=== PATIENT | female | born 1985 | race Hispanic/Latino ===

== ENCOUNTER → 2018-03-03 13:57 | Outpatient (CLI) | payer BC, SELFPAY ==
--- NOTE | 2018-03-03 14:08 | BI_ITS ---
MAMMOGRAPHY - BILATERAL SCREENING REASON FOR EXAM: Female, 32 years old. Routine annual screening examination. PERTINENT HISTORY: Non-contributory. Right breast is large in the left breast. TECHNIQUE: Digital bilateral breast katie (3D mammographic acquisition) in the CC and MLO projections. 2-D mediolateral oblique (MLO) and craniocaudad (CC) views of both breasts were obtained. CAD: Full Field Digital Mammography with Computer Added Detection was performed. COMPARISON: None. Baseline examination. FINDINGS: Breast Composition: The breasts are heterogeneously dense, which may obscure small masses. There are no dominant masses or suspicious calcifications. No other significant abnormalities are identified. BI/DIAG MAMM W/CAD, BILAT IMPRESSION: Negative screening mammogram. With the patient's history of fullness of the right breast, correlation with ultrasound is recommended. ASSESSMENT CATEGORY: BIRADS Category 0: Incomplete. Need additional imaging evaluation. A letter regarding these results will be sent to the patient by the facility within 30 days. Approximately 10% of breast cancers are not detected by mammography. A normal mammogram should not delay biopsy of a clinically suspicious abnormality. [id number] Electronically Signed: Wicho Suarez MD at 16:05 EDT Tel [phone], Service support ,
--- NOTE | 2018-03-03 14:09 | US_ITS ---
STUDY: ULTRASOUND BREAST - RIGHT REASON FOR EXAM: Female, 32 years old. Pain in the right breast. TECHNIQUE: Axial and longitudinal images of the RIGHT breast were performed with a high resolution ultrasound transducer. COMPARISON: Comparison is made with prior mammogram done earlier today. FINDINGS: RIGHT Breast: The entire right breast was examined by ultrasound. There is homogeneous fibroglandular tissue. No solid or cystic mass lesion is seen. US/Breast Limited Unilateral IMPRESSION: Unremarkable sonographic examination of the breasts. ASSESSMENT CATEGORY: BIRADS Category 1: Negative. A letter regarding these results will be sent to the patient by the facility within 30 days. Electronically Signed: Wicho Suarez MD at 16:04 EDT Tel [phone], Service support ,
== END ==
PROVIDERS: Family Provider Internal Medicine; PCP Internal Medicine; Visit Provider Obstetrics & Gynecology
DX: N63.0 Unspecified lump in unspecified breast (principal); N62 Hypertrophy of breast
CPT/HCPCS: 76642; 77062; 77066; G0279

== ENCOUNTER → 2018-03-16 08:09 | Outpatient (CLI) | payer BC, SELFPAY ==
[2018-03-16 09:00] LABS: Hematocrit 39.2 % (37-47); Mean Corp Hgb Conc 33.2 g/gl (32-36); Mean Corpuscular Hgb 32.5 pg (27.0-32.0); Mean Platelet Vol. 11.8 fl (6.2-12.0); Platelet Count 245 K/mm3 (150-450); RBC Distribution Width CV 11.7 % (11.6-14.6); RBC Distribution Width SD 42.1 fl (35.1-43.9); White Blood Count 6.5 K/mm3 (4.4-11.0)
[2018-03-16 09:02] LABS: Scan Indicated on CBC? Y/N NO
[2018-03-16 09:23] LABS: Glucose 75GTT - Fasting 95 mg/dL (70-99)
[2018-03-16 10:27] LABS: Glucose 75GTT - 60 minutes 80 mg/dL (100-160)
[2018-03-16 10:28] LABS: AST(SGOT) 12 U/L (15-37); Alanine Aminotransfer ALT/SGPT 19 U/L (13-56); Albumin, Serum 3.7 g/dL (3.2-5.0); Alkaline Phosphatase 80 U/L (45-117); Anion Gap 8 (5-15); BUN 16 mg/dL (7-18); BUN/Creat Ratio 17.6 RATIO (10-20); Calcium,Total 8.7 mg/dL (8.5-10.1); Chloride 109 mmol/L (98-107); Cholesterol 150 mg/dL (200); Creatinine, Serum 0.91 mg/dL (0.55-1.02); EST Glomerular Filtration Rate 76 mL/min (>60); Est Glom Filt Rate - Afr Amer 91 mL/min (>60); Estradiol 40.4 pg/mL; Follicle Stimulating Hormone 7.2 mIU/mL; GGTP 11 U/L (5-55); Globulin 3.8 g/dL (2.2-4.2); Glucose 92 mg/dL (74-106); High Density Lipoprotein 44 mg/dL; Potassium 4.2 mmol/L (3.5-5.1); Prolactin 28.5 ng/mL; Protein, Total 7.5 g/dL (6.4-8.2); Sodium Level 142 mmol/L (136-145); T4 Free Direct 0.97 ng/dL (0.76-1.46); Thyroid Stim Hormone (TSH) 5.86 uIU/mL (0.358-3.74); Triglycerides 93 mg/dL; Very Low Density Lipoprotein 19 mg/dL (5-40)
[2018-03-16 10:34] LABS: Glucose 75GTT - 30 minutes 123 mg/dL (100-160)
[2018-03-16 12:28] LABS: Glucose 75GTT - 120 minutes 92 mg/dL (70-140)
[2018-03-17 08:21] LABS: Insulin 75GTT - 30 MIN 76.4 mU/L (Not Estab.)
[2018-03-17 08:21] LABS: Insulin 75GTT - Fasting 7.7 mU/L (2.6-37.6)
[2018-03-17 08:27] LABS: Vitamin D,25 Hydroxy 26.9 ng/mL (29.95-100.01)
[2018-03-17 08:27] LABS: Insulin 75GTT - 120 min 26.5 mU/L (Not Estab.)
[2018-03-17 11:38] LABS: Sex Hormone-binding Globulin 38.1 nmol/L (24.6-122.0)
[2018-03-19 11:21] LABS: 17-Hydroxyprogesterone 41 ng/dL (.)
[2018-03-22 14:07] LABS: Thyroid Peroxidase AB 13 IU/mL (0-34)
[2018-03-23 10:27] LABS: Thyroglobulin Antibody < 1.0 IU/mL (0.0-0.9)
== END ==
PROVIDERS: Family Provider Family Medicine; PCP Family Medicine; Visit Provider Obstetrics & Gynecology
DX: Z83.3 Family history of diabetes mellitus (principal); Z82.49 Family history of ischemic heart disease and other diseases of the circulatory system; Z68.28 Body mass index [BMI] 28.0-28.9, adult
CPT/HCPCS: 36415; 80053; 80061; 82306; 82533; 82627; 82670; 82951; 82952; 82977; 83001; 83498; 83525; 84144; 84146; 84270; 84403; 84439; 84443; 84480; 84481; 84482; 85027; 86376; 86800; 82626

== ENCOUNTER → 2018-05-10 10:03 | Outpatient (CLI) | payer BC, SELFPAY ==
[2018-05-10 11:16] LABS: Estradiol 31.9 pg/mL; Follicle Stimulating Hormone 5.7 mIU/mL; Free T3 3.1 pg/mL (2.18-3.98); Prolactin 16.7 ng/mL; T4 Free Direct 1.34 ng/dL (0.76-1.46); Thyroid Stim Hormone (TSH) 0.04 uIU/mL (0.358-3.74)
[2018-05-11 05:07] LABS: DHEA Sulfate 335.9 ug/dL (84.8-378.0)
[2018-05-11 08:33] LABS: Sex Hormone-binding Globulin 34.1 nmol/L (24.6-122.0)
== END ==
PROVIDERS: Visit Provider Obstetrics & Gynecology
DX: E03.9 Hypothyroidism, unspecified (principal); E22.1 Hyperprolactinemia; E28.8 Other ovarian dysfunction
CPT/HCPCS: 36415; 82627; 82670; 83001; 84146; 84270; 84403; 84439; 84443; 84481; 82626

== ENCOUNTER → 2018-06-22 16:48 | Outpatient (CLI) | payer BC, SELFPAY ==
[2018-06-22 17:28] LABS: Absolute Lymphocyte Count 2.61 X10^3/ul (0.83-4.51); Absolute Neutrophil Count 5.1 X10^3/uL (2.0-7.7); Basophil# 0.04 X10^3/uL; Basophil% 0.5 % (0-1); Eosinophil# 0.07 X10^3/uL; Eosinophils% 0.8 % (0-5); Hematocrit 38.2 % (37-47); Hemoglobin 13.1 g/dl (12.0-15.0); Lymphocyte # 2.61 X10^3/ul (4.0); Lymphocyte % 31.1 % (19-41); Mean Corp Hgb Conc 34.3 g/gl (32-36); Mean Corpuscular Volume 96.2 fL (81-99); Mean Platelet Vol. 11.7 fl (6.2-12.0); Monocyte# 0.54 X10^3/uL; Monocyte% 6.4 % (0-10); Neutrophil # 5.12 X10^3/uL (2.7-7.7); Neutrophil % 61.1 % (47-70); Platelet Count 220 K/mm3 (150-450); RBC Distribution Width CV 11.9 % (11.6-14.6); RBC Distribution Width SD 41.7 fl (35.1-43.9); Red Blood Count 3.97 M/mm3 (4.2-5.4); White Blood Count 8.4 K/mm3 (4.4-11.0)
[2018-06-22 17:32] LABS: POSITIVE COUNT NO; POSITIVE DIFFERENTIAL NO; POSITIVE MORPHOLOGY NO
[2018-06-22 17:46] LABS: Color, Urine Yellow (Yellow); Glucose, Dipstick Normal (Normal); Ketone-Dipstick Negative (Negative); Leukocyte Esterase-Dipstick 500 /ul (Negative); Nitrite-Dipstick Negative (Negative); Occult Blood-Urine 10 /ul (Negative); Protein-Dipstick Negative (Negative); Urine Bilirubin Dipstick Negative (Negative); Urine Clarity Sl. Cloudy (Clear); Urine Urobilinogen Normal (Normal)
[2018-06-22 18:03] LABS: Thyroid Stim Hormone (TSH) 0.11 uIU/mL (0.358-3.74)
[2018-06-22 18:18] LABS: Amphetamine Urine VISTA NEGATIVE (<1000 ng/mL); Barbiturate Urine VISTA NEGATIVE (< 200 ng/mL); Benzodiazepine Urine VISTA NEGATIVE (< 200 ng/mL); Cocaine Urine VISTA NEGATIVE (< 300 ng/mL); Ecstacy Urine VISTA NEGATIVE (< 500 ng/mL); Methadone Urine VISTA NEGATIVE (< 300 ng/mL); PCP Urine VISTA NEGATIVE (< 25 ng/mL); THC Urine VISTA NEGATIVE (< 50 ng/mL); Vista UDS pH Range 6
[2018-06-22 18:47] LABS: HIV - WCH Non-Reactive (Nonreactive); Rubella IgG 320.9 IU/mL; Vitamin D,25 Hydroxy 38.1 ng/mL (29.95-100.01)
[2018-06-22 19:42] LABS: Chlamydia Trachomatis by PCR Negative (Negative); Neisserai gonorrhoeae by PCR Negative (Negative); Probe Check PASS; Sample Adequacy Control PASS; Specimen Processing Control PASS
[2018-06-24 08:30] LABS: HEPATITIS B SURFACE AG Negative (Negative); Hep C Antibodies <0.1 s/co ratio (0.0-0.9)
[2018-06-25 02:02] LABS: Prenatal RPR NONREACTIVE (NONREACTIVE)
== END ==
PROVIDERS: Visit Provider Obstetrics & Gynecology
DX: Z32.01 Encounter for pregnancy test, result positive (principal); Z11.3 Encounter for screening for infections with a predominantly sexual mode of transmission
CPT/HCPCS: 36415; 80307; 81002; 82306; 84439; 84443; 84481; 85025; 86703; 86762; 86803; 87340; 87491; 87591

== ENCOUNTER → 2018-07-12 15:49 | Outpatient (CLI) | payer BC, SELFPAY ==
[2017-02-27 06:46] VITALS: BMI 26.3
[2018-07-12 18:44] LABS: Progesterone Level 10.89 ng/mL (See Comment)
--- OUTSIDE RECORDS SUMMARY | 2018-08-29 00:52 | XMS RPT_ITS ---
:1985 Author Organization OHIP Care Team Providers Name Role Phone Melissa Stringer Attending Unavailable Melissa Stringer Attending Unavailable Russel Moreland Primary Care Unavailable Melissa Stringer Attending Unavailable Melissa Stringer Referring Unavailable Ken Fuentes Primary Care Unavailable Melissa Stringer Attending Unavailable Melissa Stringer Attending Unavailable PROBLEMS PROBLEMS DATE TYPE CONDITION / CODE ATTENDING STATUS SOURCE 07/12/2018 Unknown Z34.81 - Encounter for [facility] [place] supervision of other [facility] normal , first Hospital trimester / Repository Z34.81(ICD-10) 05/10/2018 Unknown E28.8 - Other ovarian [place], [facility] [place] dysfunction / [facility] E28.8(ICD-10) Hospital Repository 05/10/2018 Unknown E03.9 - Hypothyroidism, [place], [facility] [place] unspecified / [facility] E03.9(ICD-10) Hospital Repository 05/10/2018 Unknown E22.1 - [place], [facility] [place] Hyperprolactinemia / [facility] E22.1(ICD-10) Hospital Repository PROCEDURES PROCEDURES No Procedure Records FoundRESULTS RESULTS PROGESTERONE LEVEL Collected: 07/12/2018 Status: F Source: [place] 3:51 PM [facility] REPOSITORY TYPE CODE TESTS RESULT OUT OF REFERENCE UNITS RANGE LAB L509.4001 See Comment ng/mL Progesterone Normal 10.89 Result Comment: Progesterone Reference Table: UNITS Female: Follicular 0.15 - 1.40 ng/mL Luteal 3.34 - 25.56 ng/mL Mid-luteal 4.44 - 28.03 ng/mL Postmenopausal 0.0 - 0.73 ng/mL : 1st Trimester 11.22 - 90.00 ng/mL 2nd Trimester 25.55 - 89.40 ng/mL 3rd Trimester 48.40 -422.50 ng/mL Performed By: #### L509.4001 #### [facility] [address] [place], [address] URINE DRUG SCREEN Collected: 06/22/2018 Status: F Source: [place] (VISTA) 4:50 PM [facility] REPOSITORY Order Comment: List of Drugs Taken or Suspected? UNK TYPE CODE TESTS RESULT OUT OF RANGE REFERENCE UNITS LAB L505.0075 TO BE Normal CONFIRMED Result Comment: CONFIRMATORY TESTING FOR ALL POSITIVE URINE DRUG SCREEN RESULTS WILL ONLY BE SENT OUT UPON PHYSICIAN ORDER. VISTA Urine Drug Screen methods provide only preliminary analytical test results. A more specific alternate chemical method must be used in order to obtain a confirmed analytical result. Gas chromatography/mass spectrometery (GC/MS) is the preferred confirmatory method. Clinical consideration and professional judgement should be applied to any drug of abuse test result, particularly when preliminary positive results are used. URINE TCA TESTING MUST BE ORDERED SEPARATELY. USE TEST MNEMONIC: [facility] LAB L505.5005 VISTA UDS PH 6 Normal LAB L505.5015 <1000 ng/mL AMPHETAMINES Normal NEGATIVE LAB L505.5025 < 200 ng/mL BARBITIURATES Normal NEGATIVE LAB L505.5035 < 200 ng/mL BENZODIAZIPINE Normal NEGATIVE LAB L505.5045 < 300 ng/mL COCAINE Normal NEGATIVE LAB L505.5055 < 500 ng/mL ECSTACY Normal NEGATIVE LAB L505.5065 < 300 ng/mL METHADONE Normal NEGATIVE LAB L505.5075 < 300 ng/mL OPIATES Normal NEGATIVE LAB L505.5085 < 25 ng/mL PCP Normal NEGATIVE LAB L505.5095 < 50 ng/mL THC Normal NEGATIVE Performed By: #### L505.5000 #### [facility] [address] [place], [place], [id number] CBC W/DIFF, AUTOMATED Collected: 06/22/2018 Status: F Source: [place] 4:50 PM [facility] REPOSITORY TYPE CODE TESTS RESULT OUT OF RANGE REFERENCE UNITS LAB L100.1000 4.4-11.0 K/mm3 Normal WBC 8.4 LAB L100.1200 4.2-5.4 M/mm3 Low RBC 3.97 LAB L100.1300 12.0-15.0 g/dl Normal HGB 13.1 LAB L100.1400 37-47 % Normal HCT 38.2 LAB L100.1500 81-99 fL Normal MCV 96.2 LAB L100.1600 27.0-32.0 pg High MCH 33.0 LAB L100.1700 32-36 g/gl Normal MCHC 34.3 LAB L100.1810 11.6-14.6 % Normal RDW CV 11.9 LAB L100.1820 35.1-43.9 fl Normal RDW SD 41.7 LAB L100.1900 150-450 K/mm3 Normal PLT 220 LAB L100.2000 6.2-12.0 fl Normal MPV 11.7 LAB L100.2100 47-70 % Normal NEUT% 61.1 LAB L100.2200 19-41 % Normal LY% 31.1 LAB L100.2300 0-10 % Normal MONO% 6.4 LAB L100.2400 0-5 % Normal EO% 0.8 LAB L100.2500 0-1 % Normal BASO% 0.5 LAB L100.2550 0.0-0.9 % Normal IM GRAN % 0.100 Result Comment: IG% - Immature Granulocytes (promyelocytes, myelocytes and metamyelocytes) > 1% indicates that a LEFT SHIFT is Present. LAB L100.2620 2.0-7.7 X10 3/uL Normal Absolute Neut 5.1 LAB L100.2720 0.83-4.51 X10 3/ul Normal Absolute Lymph 2.61 Performed By: #### L100.0100 #### [facility] [address] [place], [place], [id number] URINALYSIS, ROUTINE Collected: 06/22/2018 Status: F Source: [place] (DIPSTICK) 4:50 PM [facility] REPOSITORY Order Comment: How was Urine Obtained? CLEAN CATCH TYPE CODE TESTS RESULT OUT OF RANGE REFERENCE UNITS LAB L400.3000 Yellow COLOR Normal Yellow LAB L400.3050 Clear Normal CLARITY Sl. Cloudy LAB L400.3200 Normal mg/dl Normal GLUCOSE, UR Normal LAB L400.3300 Negative mg/dL Normal BILIRUBIN URINE Negative LAB L400.3400 Negative mg/dl Normal KETONE UR Negative LAB L400.3465 1.002-1.030 Normal SP.GR. DIPSTX 1.010 LAB L400.3550 5.0 - 8.0 pH UR Normal 7.0 LAB L400.3600 Negative mg/dl PROT Normal DIPSTX Negative LAB L400.3700 Normal mg/dl Normal UROBILI Normal LAB L400.3750 Negative Normal NITRITE UR Negative LAB L400.3780 Negative /ul High 10 OCCULT BLOOD-UR LAB L400.3800 Negative /ul High LEUK ESTERASE 500 Performed By: #### L400.2010 #### [facility] [address] [place], [place], [address] THYROID STIM HORMONE Collected: 06/22/2018 Status: F Source: [place] (TSH) 4:50 PM [facility] REPOSITORY TYPE CODE TESTS RESULT OUT OF RANGE REFERENCE UNITS LAB L501.9520 0.358-3.74 uIU/mL Low TSH 0.11 Performed By: #### L501.9520 #### [facility] [address] [facility] [place], [address] VITAMIN D,25 HYDROXY Collected: 06/22/2018 Status: F Source: [place] 4:50 PM [facility] REPOSITORY TYPE CODE TESTS RESULT OUT OF RANGE REFERENCE UNITS LAB L506.1000 29.95-100.01 ng/mL Normal Vitamin D 38.1 25-OH Result Comment: Vitamin D 25(OH) Status Range Deficiency <20 ng/mL (50nmol/L) Insuffciency 20 - 30 ng/mL (50 - 75 nmol/L) Sufficiency 30 - 100 ng/mL (75 - 250 nmol/L) Toxicity >100 ng/mL (>250 nmol/L) Performed By: #### L506.1000, L509.4000, L3890.6005 #### [facility] [address] [place], [address] RUBELLA IGG Collected: 06/22/2018 Status: F Source: [place] 4:50 PM [facility] REPOSITORY TYPE CODE TESTS RESULT OUT OF RANGE REFERENCE UNITS LAB L509.4000 IU/mL Normal Rubella IgG 320.9 Result Comment: Antibody results Interpretation of Immune Status < 5 IU/ml Presumed Non-immune 5 - < 10 IU/ml Equivocal > or = 10 IU/ml Presumed Immune Performed By: #### L506.1000, L509.4000, L3890.6005 #### [facility] [address] [facility] [place], [address] HIV - [facility] Collected: 06/22/2018 Status: F Source: [place] 4:50 PM [facility] REPOSITORY TYPE CODE TESTS RESULT OUT OF RANGE REFERENCE UNITS LAB L3890.6005 Nonreactive Normal HIV - [facility] Non-Reactive Performed By: #### L506.1000, L509.4000, L3890.6005 #### [facility] [address] [place], [address] T AND S-NO Collected: 06/22/2018 Status: F Source: [place] CHARGE W/PNP 4:50 PM [facility] REPOSITORY Order Comment: Reason for Type AND Screen/Red Cells: Surgery? N TYPE CODE TESTS RESULT OUT OF RANGE REFERENCE UNITS LAB B10.0800 A Normal BLOOD POSITIVE TYPE GEL LAB B100.4050 Normal Ab SCREEN NEGATIVE GEL Performed By: #### B100.7550 #### [facility] [facility] [place], [address] HEPATITIS B SURFACE Collected: 06/22/2018 Status: F Source: [place] AG 4:50 PM [facility] REPOSITORY TYPE CODE TESTS RESULT OUT OF RANGE REFERENCE UNITS LAB L3100.0400 Negative Normal HB Negative SURF AG Result Comment: Performed at: [address] [id number] Glass Glazier: Yair Plasencia PhD, Phone: [phone] Performed By: #### L3100.0390, L3100.0625 #### [facility] (refer to report for specific site) refer to report for address and phone number HEPATITIS C ANTIBODIES Collected: 06/22/2018 Status: F Source: [place] 4:50 PM [facility] REPOSITORY TYPE CODE TESTS RESULT OUT OF RANGE REFERENCE UNITS LAB L3100.0650 0.0-0.9 s/co ratio Normal HEP C AB <0.1 Result Comment: Negative: < 0.8 Indeterminate: 0.8 - 0.9 Positive: > 0.9 The CDC recommends that a positive HCV antibody result be followed up with a HCV Nucleic Acid Amplification test (379503). Performed By: #### L3100.0390, L3100.0625 #### [facility] (refer to report for specific site) refer to report for address and phone number RPR Collected: 06/22/2018 Status: F Source: [place] 4:50 PM [facility] REPOSITORY TYPE CODE TESTS RESULT OUT OF REFERENCE UNITS RANGE LAB L700.5100 NONREACTIVE Normal RPR NONREACTIVE Performed By: #### L700.5100 #### [facility] [address] [place], [place], [id number] MISCELLANEOUS LAB Collected: 06/22/2018 Status: F Source: [place] PROCEDURE 4:50 PM [facility] REPOSITORY Order Comment: [facility] Interface Comments: [facility] ADD ON REQUEST FILLED OUT AND Interface Comments: FAXED BACK TO [facility]. [facility] Comments: #[id number] T3F SERUM, #[id number] T4F SERUM Test(s) Ordered: #[id number] T3F SERUM TYPE CODE TESTS RESULT OUT OF RANGE REFERENCE UNITS LAB L801.1541 Normal [facility] TEST Result Comment: TEST RESULT LIMITS Thyroxine (T4) Free, Direct T4, Free (Direct) 1.66 ng/dL 0.82 - 1.77 TESTING [facility] AT [facility]. ORIGINAL REPORT ON FILE IN LAB CONTAINS ADDITIONAL TEST SITE INFORMATION. Performed By: #### L801.1541 #### [facility] [address] [place], [address] MISCELLANEOUS LAB Collected: 06/22/2018 Status: F Source: [place] PROCEDURE 2 4:50 PM [facility] REPOSITORY Order Comment: [facility] Interface Comments: ADDED TO BLOOD AT [facility]. ADD ON REQUEST FILLED OUT AND Interface Comments: FAXED BACK TO [facility]. [facility] Comments: #[id number] T3F SERUM, #[id number] T4F SERUM List Test(s) Ordered by Physician: #[id number] T4F SERUM TYPE CODE TESTS RESULT OUT OF RANGE REFERENCE UNITS LAB L801.1543 Normal [facility] TEST 2 Result Comment: TEST RESULT LIMITS Triiodothyronine (T3), Free 3.1 pg/mL 2.0 - 4.4 TESTING PERFORMED AT [facility]. ORIGINAL REPORT ON FILE IN LAB CONTAINS ADDITIONAL TEST SITE INFORMATION. Performed By: #### L801.1543 #### [facility] [address] [place], [address] CT/NG [facility] BY PCR Collected: 06/22/2018 Status: F Source: [place] 4:30 PM [facility] REPOSITORY TYPE CODE TESTS RESULT OUT OF RANGE REFERENCE UNITS LAB L8200.2100 Negative Normal Chlam Negative Trac PCR LAB L8200.2200 Negative Normal NG by Negative PCR Performed By: #### L8200.2000 #### [facility] [address] [place], [address] TESTOSTERONE, SERUM TOTAL Collected: 05/10/2018 Status: F Source: [place] 10:05 AM [facility] REPOSITORY TYPE CODE TESTS RESULT OUT OF REFERENCE UNITS RANGE LAB L509.3000 ng/dL Testosterone Normal 38.35 Result Comment: NORMAL REFERENCE RANGES MALE AGE <50 123.06 - 813.86 ng/dL MALE AGE >50 89.98 - 780.10 ng/dL FEMALE PREMENOPAUSE AGE 21 - 60 9.01 - 47.94 ng/dL FEMALE POSTMENOPAUSE AGE 45 - 89 <7.00 - 45.62 ng/dL REFERENCE RANGE AND METHODOLOGY CHANGED 07/22/2017 Performed By: #### L509.3000 #### [facility] [address] [place], [address] FREE T3 Collected: 05/10/2018 Status: F Source: [place] 10:05 [facility] REPOSITORY TYPE CODE TESTS RESULT OUT OF RANGE REFERENCE UNITS LAB L501.15369 2.18-3.98 pg/mL Normal FREE T3 3.1 Performed By: #### L501.59632, L501.9520, L506.0400, L3100.5125, L3100.5420, L3300.1750 #### [facility] [address] [place], [place], [address] THYROID STIM HORMONE Collected: 05/10/2018 Status: F Source: [place] (TSH) 10:05 AM [facility] REPOSITORY TYPE CODE TESTS RESULT OUT OF RANGE REFERENCE UNITS LAB L501.9520 0.358-3.74 uIU/mL Low TSH 0.04 Performed By: #### L501.65834, L501.9520, L506.0400, L3100.5125, L3100.5420, L3300.1750 #### [facility] [address] [place], [place], [address] T4 FREE DIRECT Collected: 05/10/2018 Status: F Source: [place] 10:05 AM [facility] REPOSITORY TYPE CODE TESTS RESULT OUT OF RANGE REFERENCE UNITS LAB L506.0400 0.76-1.46 ng/dL Normal T4 FREE 1.34 DIRECT Performed By: #### L501.59312, L501.9520, L506.0400, L3100.5125, L3100.5420, L3300.1750 #### [facility] [address] [place], [place], [address] FOLLICLE STIMULATING Collected: 05/10/2018 Status: F Source: [place] HORMONE 10:05 AM [facility] REPOSITORY TYPE CODE TESTS RESULT OUT OF RANGE REFERENCE UNITS LAB L3100.5125 mIU/mL Normal FSH 5.7 Result Comment: NORMAL REFERENCE RANGES FEMALE FOLLICULAR 2.3 - 12.6 mIU/mL MID-CYCLE PEAK 5.2 - 17.5 mIU/mL LUTEAL 1.7 - 12.9 mIU/mL POST-MENOPAUSAL ON MHT 5.9 - 72.8 mIU/mL NOT ON MHT 12.7 - 132.2 mlU/mL MALE 0.7 - 10.8 mIU/mL NEW TEST METHOD AND REFERENCE RANGES DECEMBER 22, 2011 Performed By: #### L501.42013, L501.9520, L506.0400, L3100.5125, L3100.5420, L3300.1750 #### [facility] [address] [place], [place], [address] PROLACTIN Collected: 05/10/2018 Status: F Source: [place] 10:05 [facility] REPOSITORY TYPE CODE TESTS RESULT OUT OF RANGE REFERENCE UNITS LAB L3100.5420 ng/mL Normal PROLACTIN 16.7 Result Comment: NORMAL REFERENCE RANGES FEMALE NON- 2.2 - 30.3 ng/mL 8.1 - 347.6 ng/mL POST-MENOPAUSAL 0.7 - 31.5 ng/mL MALE 2.5 - 17.4 ng/mL NEW TEST METHOD AND REFERENCE RANGES DECEMBER 22, 2011 Performed By: #### L501.41994, L501.9520, L506.0400, L3100.5125, L3100.5420, L3300.1750 #### [facility] [address] [place], [address] ESTRADIOL Collected: 05/10/2018 Status: F Source: [place] 10:05 AM [facility] REPOSITORY TYPE CODE TESTS RESULT OUT OF RANGE REFERENCE UNITS LAB L3300.1750 pg/mL Normal ESTRADIOL 31.9 Result Comment: NORMAL REFERENCE RANGES FEMALE FOLLICULAR 21.4 - 164.8 pg/mL MID-CYCLE PEAK 49.9 - 367.2 pg/mL LUTEAL 40.2 - 259.0 pg/mL POST-MENOPAUSAL ON MHT <11.0 - 462.1 pg/mL NOT ON MHT <11.0 - 58.3 pg/mL MALE <11.0 - 52.5 pg/mL NOTE: [facility] HAS CONFIRMED THE DRUG FULVETRANT (FASLODEX) MAY CAUSE FALSELY ELEVATED ESTRADIOL RESULTS WHEN USING THIS TEST METHOD. IF PATIENT IS TAKING FULVESTRANT AN ALTERNATIVE METHOD SHOULD BE USED TO DETERMINE ESTRADIOL CONCENTRATION. Performed By: #### L501.48625, L501.9520, L506.0400, L3100.5125, L3100.5420, L3300.1750 #### [facility] [address] [place], [address] SEX HORMONE-BINDING Collected: 05/10/2018 Status: F Source: [place] GLOBULIN 10:05 [facility] REPOSITORY Order Comment: Has Patient had Radioactive Injection for X-ray?: N TYPE CODE TESTS RESULT OUT OF RANGE REFERENCE UNITS LAB L3100.5060 24.6-122.0 nmol/L Normal SHBG 34.1 Result Comment: Performed at: [facility] [id number] Glass Glazier: Yair Plasencia PhD, Phone: [phone] Performed By: #### L3100.5060, L3300.1500 #### [facility] ([facility]er to [facility] for specific [facility]) refer to report for address and phone number DHEA SULFATE Collected: 05/10/2018 Status: F Source: [place] 10:05 AM [facility] REPOSITORY Order Comment: Has Patient had Radioactive Injection for X-ray?: N TYPE CODE TESTS RESULT OUT OF RANGE REFERENCE UNITS LAB L3300.1500 84.8-378.0 ug/dL Normal DHEA SULF 335.9 4020 Performed By: #### L3100.5060, L3300.1500 #### [facility] (refer to report for specific site) refer to report for address and phone number 2 HR GLUCOSE TOLERANCE Collected: 03/16/2018 Status: F Source: [place] - 75 GM 8:25 AM [facility] REPOSITORY Order Comment: Is Patient Fasting? Y TYPE CODE TESTS RESULT OUT OF RANGE REFERENCE UNITS LAB L501.0703 70-99 mg/dL Normal GLU 75GTT 95 - F Result Comment: GLUCOSE TOLERANCE TEST Reference Interval Non- Adults Fasting 70 - 99 30 minutes 100 - 160 60 minutes 100 - 160 120 minutes 70 - 140 LAB L501.0710 100-160 mg/dL Low GLU 75GTT - 60 80 Result Comment: GLUCOSE TOLERANCE TEST Reference Interval Non- Adults Fasting 70 - 99 30 minutes 100 - 160 60 minutes 100 - 160 120 minutes 70 - 140 LAB L501.0705 100-160 mg/dL Normal GLU 75GTT - 30 123 Result Comment: GLUCOSE TOLERANCE TEST Reference Interval Non- Adults Fasting 70 - 99 30 minutes 100 - 160 60 minutes 100 - 160 120 minutes 70 - 140 LAB L501.0715 70-140 mg/dL Normal GLU 75GTT - 120 92 Result Comment: GLUCOSE TOLERANCE TEST Reference Interval Non- Adults Fasting 70 - 99 30 minutes 100 - 160 60 minutes 100 - 160 120 minutes 70 - 140 Performed By: #### L500.5100 #### [facility] [address] [place], [place], [address] 2 HR INSULIN - 75 GM Collected: 03/16/2018 Status: F Source: [place] 8:25 AM [facility] REPOSITORY TYPE CODE TESTS RESULT OUT OF RANGE REFERENCE UNITS LAB L503.8060 2.6-37.6 mU/L Normal INSUL 7.7 75GTT - F LAB L503.8065 Not Estab. mU/L Normal INSU 76.4 75GTT - 30 LAB L503.8070 Not Estab mU/L Normal INSU 27.0 75GTT - 60 LAB L503.8075 Not Estab. mU/L Normal INSU 26.5 75GTT-120 Result Comment: 75 GRAM GLUCOLA INSULIN TEST Reference Interval Non- Adults Fasting 2.6 - 37.6 30 min Not Estab 60 min Not Estab 120 min Not Estab Performed By: #### L503.8055 #### [facility] [address] [place], [place], [address] CBC-COMPLETE BLOOD CNT Collected: 03/16/2018 Status: F Source: [place] NO DIFF 8:16 AM [facility] REPOSITORY TYPE CODE TESTS RESULT OUT OF RANGE REFERENCE UNITS LAB L100.1000 4.4-11.0 K/mm3 Normal WBC 6.5 LAB L100.1200 4.2-5.4 M/mm3 Low RBC 4.00 LAB L100.1300 12.0-15.0 g/dl Normal HGB 13.0 LAB L100.1400 37-47 % Normal HCT 39.2 LAB L100.1500 81-99 fL Normal MCV 98.0 LAB L100.1600 27.0-32.0 pg High MCH 32.5 LAB L100.1700 32-36 g/gl Normal MCHC 33.2 LAB L100.1810 11.6-14.6 % Normal RDW CV 11.7 LAB L100.1820 35.1-43.9 fl Normal RDW SD 42.1 LAB L100.1900 150-450 K/mm3 Normal PLT 245 LAB L100.2000 6.2-12.0 fl Normal MPV 11.8 Performed By: #### L100.0500 #### [facility] [address] [place], [address] COMPREHENSIVE METABOLIC Collected: 03/16/2018 Status: F Source: [place] PROFIL 8:16 AM [facility] REPOSITORY Order Comment: PLEASE ADD TO BLOOD IN LAB FROM 03/16/18. RACK TG2 1 C OR TG2 2 I. TYPE CODE TESTS RESULT OUT OF RANGE REFERENCE UNITS LAB L501.0100 74-106 mg/dL Normal GLU 92 Result Comment: Please note revised GLUCOSE reference range effective 2017. LAB L501.1000 7-18 mg/dL Normal BUN 16 LAB L501.1100 0.55-1.02 mg/dL Normal CREAT,SERUM 0.91 Result Comment: The validity of the calculated GFR AND GFRAA in patients over 70 years has not been determined. Clinical correlation is essential. LAB L501.1110 >60 mL/min Normal EST GFR 76 Result Comment: Non- GFR Calc LAB L501.1115 >60 mL/min Normal EST GFR - AA 91 Result Comment: GFR Calc LAB L501.1300 10-20 RATIO Normal BUN/CRE 17.6 LAB L501.1500 6.4-8.2 g/dL T Normal PROT 7.5 LAB L501.1800 3.2-5.0 g/dL Normal ALB 3.7 LAB L501.1950 2.2-4.2 g/dL Normal GLOB 3.8 LAB L501.2000 0.9-2.4 RATIO Normal A/G 1.0 LAB L501.2200 8.5-10.1 mg/dL CA Normal 8.7 LAB L501.4100 15-37 U/L Low AST 12 LAB L501.4305 45-117 U/L Normal ALK P 80 LAB L501.4405 13-56 U/L Normal ALT 19 LAB L501.4600 0.20-1.00 mg/dL T Normal BILI 0.40 LAB L501.5300 136-145 mmol/L NA Normal 142 LAB L501.5600 3.5-5.1 mmol/L K Normal 4.2 LAB L501.5900 98-107 mmol/L High CL 109 LAB L501.6100 21.0-32.0 mmol/L Normal CO2 25.0 LAB L501.6200 5-15 Normal GAP 8 Performed By: #### L500.4050, L500.4100, L501.5100, L501.9520, L506.0400, L3100.5125, L3100.5420, L3300.1750, L501.07272 #### [facility] [address] [place], [address] LIPID PROFILE Collected: 03/16/2018 Status: F Source: [place] 8:16 AM [facility] REPOSITORY Order Comment: PLEASE ADD TO BLOOD IN LAB FROM 03/16/18. RACK TG2 1 C OR TG2 2 I. TYPE CODE TESTS RESULT OUT OF RANGE REFERENCE UNITS LAB L501.4900 200 mg/dL Normal CHOL 150 Result Comment: <200 mg/dL Desirable 200-240 mg/dL Borderline >240 mg/dL High Risk LAB L501.5000 mg/dL Normal TRIG 93 Result Comment: The drugs N-Acetylcysteine and Metamizole may falsely depress this assay. Serum Triglycerides Reference Interval Normal <150 mg/dL Borderline high 150 - 199 mg/dL High 200 - 499 mg/dL Very High > or = 500 mg/dL LAB L501.6400 mg/dL Normal HDL 44 Result Comment: The drugs N-Acetylcysteine and Metamizole may falsely depress this assay. Reference Range HDL <40 mg/dL Low HDL Cholesterol HDL >or= 60 mg/dL High HDL Cholesterol LAB L501.6500 0-130 mg/dL Normal LDL 87 LAB L501.6600 5-40 mg/dL Normal VLDL 19 Performed By: #### L500.4050, L500.4100, L501.5100, L501.9520, L506.0400, L3100.5125, L3100.5420, L3300.1750, L501.76731 #### [facility] [address] [place], [place], [id number] GGTP Collected: 03/16/2018 Status: F Source: [place] 8:16 AM [facility] REPOSITORY Order Comment: PLEASE ADD TO BLOOD IN LAB FROM 03/16/18. RACK TG2 1 C OR TG2 2 I. TYPE CODE TESTS RESULT OUT OF RANGE REFERENCE UNITS LAB L501.5100 5-55 U/L Normal GGTP 11 Performed By: #### L500.4050, L500.4100, L501.5100, L501.9520, L506.0400, L3100.5125, L3100.5420, L3300.1750, L501.56765 #### [facility] [address] [facility] [place], [place], [address] THYROID STIM HORMONE Collected: 03/16/2018 Status: F Source: [place] (TSH) 8:16 AM [facility] REPOSITORY Order Comment: PLEASE ADD TO BLOOD IN LAB FROM 03/16/18. RACK TG2 1 C OR TG2 2 I. TYPE CODE TESTS RESULT OUT OF RANGE REFERENCE UNITS LAB L501.9520 0.358-3.74 uIU/mL High TSH 5.86 Performed By: #### L500.4050, L500.4100, L501.5100, L501.9520, L506.0400, L3100.5125, L3100.5420, L3300.1750, L501.73298 #### [facility] [address] [place], [place], [address] T4 FREE DIRECT Collected: 03/16/2018 Status: F Source: [place] 8:16 AM [facility] REPOSITORY Order Comment: PLEASE ADD TO BLOOD IN LAB FROM 03/16/18. RACK TG2 1 C OR TG2 2 I. TYPE CODE TESTS RESULT OUT OF RANGE REFERENCE UNITS LAB L506.0400 0.76-1.46 ng/dL Normal T4 FREE 0.97 DIRECT Performed By: #### L500.4050, L500.4100, L501.5100, L501.9520, L506.0400, L3100.5125, L3100.5420, L3300.1750, L501.76834 #### [facility] [address] [place], [place], [address] FOLLICLE STIMULATING Collected: 03/16/2018 Status: F Source: [place] HORMONE 8:16 AM [facility] REPOSITORY Order Comment: PLEASE ADD TO BLOOD IN LAB FROM 03/16/18. RACK TG2 1 C OR TG2 2 I. TYPE CODE TESTS RESULT OUT OF RANGE REFERENCE UNITS LAB L3100.5125 mIU/mL Normal FSH 7.2 Result Comment: NORMAL REFERENCE RANGES FEMALE FOLLICULAR 2.3 - 12.6 mIU/mL MID-CYCLE PEAK 5.2 - 17.5 mIU/mL LUTEAL 1.7 - 12.9 mIU/mL POST-MENOPAUSAL ON MHT 5.9 - 72.8 mIU/mL NOT ON MHT 12.7 - 132.2 mlU/mL MALE 0.7 - 10.8 mIU/mL NEW TEST METHOD AND REFERENCE RANGES DECEMBER 22, 2011 Performed By: #### L500.4050, L500.4100, L501.5100, L501.9520, L506.0400, L3100.5125, L3100.5420, L3300.1750, L501.34174 #### [facility] [address] [place], [address] PROLACTIN Collected: 03/16/2018 Status: F Source: [place] 8:16 AM [facility] REPOSITORY Order Comment: PLEASE ADD TO BLOOD IN LAB FROM 03/16/18. RACK TG2 1 C OR TG2 2 I. TYPE CODE TESTS RESULT OUT OF RANGE REFERENCE UNITS LAB L3100.5420 ng/mL Normal PROLACTIN 28.5 Result Comment: NORMAL REFERENCE RANGES FEMALE NON- 2.2 - 30.3 ng/mL 8.1 - 347.6 ng/mL POST-MENOPAUSAL 0.7 - 31.5 ng/mL MALE 2.5 - 17.4 ng/mL NEW TEST METHOD AND REFERENCE RANGES DECEMBER 22, 2011 Performed By: #### L500.4050, L500.4100, L501.5100, L501.9520, L506.0400, L3100.5125, L3100.5420, L3300.1750, L501.58205 #### [facility] [address] [place], [address] ESTRADIOL Collected: 03/16/2018 Status: F Source: [place] 8:16 AM [facility] REPOSITORY Order Comment: PLEASE ADD TO BLOOD IN LAB FROM 03/16/18. RACK TG2 1 C OR TG2 2 I. TYPE CODE TESTS RESULT OUT OF RANGE REFERENCE UNITS LAB L3300.1750 pg/mL Normal ESTRADIOL 40.4 Result Comment: NORMAL REFERENCE RANGES FEMALE FOLLICULAR 21.4 - 164.8 pg/mL MID-CYCLE PEAK 49.9 - 367.2 pg/mL LUTEAL 40.2 - 259.0 pg/mL POST-MENOPAUSAL ON MHT <11.0 - 462.1 pg/mL NOT ON MHT <11.0 - 58.3 pg/mL MALE <11.0 - 52.5 pg/mL NOTE: [facility] HAS CONFIRMED THE DRUG FULVETRANT (FASLODEX) MAY CAUSE FALSELY ELEVATED ESTRADIOL RESULTS WHEN USING THIS TEST METHOD. IF PATIENT IS TAKING FULVESTRANT AN ALTERNATIVE METHOD SHOULD BE USED TO DETERMINE ESTRADIOL CONCENTRATION. Performed By: #### L500.4050, L500.4100, L501.5100, L501.9520, L506.0400, L3100.5125, L3100.5420, L3300.1750, L501.68018 #### [facility] [address] [place], [address] FREE T3 Collected: 03/16/2018 Status: F Source: [place] 8:16 AM [facility] REPOSITORY Order Comment: PLEASE ADD TO BLOOD IN LAB FROM 03/16/18. RACK TG2 1 C OR TG2 2 I. TYPE CODE TESTS RESULT OUT OF RANGE REFERENCE UNITS LAB L501.84390 2.18-3.98 pg/mL Normal FREE T3 3.0 Performed By: #### L500.4050, L500.4100, L501.5100, L501.9520, L506.0400, L3100.5125, L3100.5420, L3300.1750, L501.27592 #### [facility] [address] [facility] [place], [address] T3 TOTAL - TRIIODOTHYRONINE Collected: 03/16/2018 Status: F Source: [place] 8:16 AM [facility] REPOSITORY TYPE CODE TESTS RESULT OUT OF RANGE REFERENCE UNITS LAB L501.9186 0.6-1.81 ng/mL Normal T3 Total 1.00 Performed By: #### L501.9186, L506.1000, L509.3000, L509.4001, L509.6000 #### [facility] [address] [facility] [address] [place], [place], [address] VITAMIN D,25 HYDROXY Collected: 03/16/2018 Status: F Source: [place] 8:16 AM [facility] REPOSITORY TYPE CODE TESTS RESULT OUT OF REFERENCE UNITS RANGE LAB L506.1000 29.95-100.01 ng/mL Low Vitamin D 26.9 25-OH Result Comment: Vitamin D 25(OH) Status Range Deficiency <20 ng/mL (50nmol/L) Insuffciency 20 - 30 ng/mL (50 - 75 nmol/L) Sufficiency 30 - 100 ng/mL (75 - 250 nmol/L) Toxicity >100 ng/mL (>250 nmol/L) Performed By: #### L501.9186, L506.1000, L509.3000, L509.4001, L509.6000 #### [facility] [address] [place], [address] TESTOSTERONE, SERUM TOTAL Collected: 03/16/2018 Status: F Source: [place] 8:16 AM [facility] REPOSITORY TYPE CODE TESTS RESULT OUT OF REFERENCE UNITS RANGE LAB L509.3000 ng/dL Testosterone Normal 24.14 Result Comment: NORMAL REFERENCE RANGES MALE AGE <50 123.06 - 813.86 ng/dL MALE AGE >50 89.98 - 780.10 ng/dL FEMALE PREMENOPAUSE AGE 21 - 60 9.01 - 47.94 ng/dL FEMALE POSTMENOPAUSE AGE 45 - 89 <7.00 - 45.62 ng/dL REFERENCE RANGE AND METHODOLOGY CHANGED 07/22/2017 Performed By: #### L501.9186, L506.1000, L509.3000, L509.4001, L509.6000 #### [facility] [address] [place], [address] PROGESTERONE LEVEL Collected: 03/16/2018 Status: F Source: [place] 8:16 AM [facility] REPOSITORY TYPE CODE TESTS RESULT OUT OF REFERENCE UNITS RANGE LAB L509.4001 See Comment ng/mL Progesterone Normal 0.60 Result Comment: Progesterone Reference Table: UNITS Female: Follicular 0.15 - 1.40 ng/mL Luteal 3.34 - 25.56 ng/mL Mid-luteal 4.44 - 28.03 ng/mL Postmenopausal 0.0 - 0.73 ng/mL : 1st Trimester 11.22 - 90.00 ng/mL 2nd Trimester 25.55 - 89.40 ng/mL 3rd Trimester 48.40 -422.50 ng/mL Performed By: #### L501.9186, L506.1000, L509.3000, L509.4001, L509.6000 #### [facility] [address] [place], [address] CORTISOL SERUM Collected: 03/16/2018 Status: F Source: [place] 8:16 AM [facility] REPOSITORY TYPE CODE TESTS RESULT OUT OF RANGE REFERENCE UNITS LAB L509.6000 3.09-22.40 ug/dL Normal CORTISOL 18.30 Result Comment: Adult (AM) 4.30 - 22.40 ug/dL Adult (PM) 3.09 - 16.66 ug/dL Performed By: #### L501.9186, L506.1000, L509.3000, L509.4001, L509.6000 #### [facility] [address], [address] SEX HORMONE-BINDING Collected: 03/16/2018 Status: F Source: [place] GLOBULIN 8:16 AM [facility] REPOSITORY Order Comment: TESTING ADDED TO BLOOD AT [facility]. MARY KAY WILL FILL OUT FAXED REQUEST AND FAX BACK TO [facility]. Has Patient had Radioactive Injection for X-ray?: N TYPE CODE TESTS RESULT OUT OF RANGE REFERENCE UNITS LAB L3100.5060 24.6-122.0 nmol/L Normal SHBG 38.1 Result Comment: Performed at: [address] [id number] Glass Glazier: Yair Plasencia PhD, Phone: [phone] Performed By: #### L3100.5060, L3300.1500, L3300.6750, L3300.7100 #### [facility] (refer to report for specific site) refer to report for address and phone number DHEA SULFATE Collected: 03/16/2018 Status: F Source: [place] 8:16 AM [facility] REPOSITORY Order Comment: [facility] MARY KAY WILL FILL OUT FAXED REQUEST AND FAX BACK TO [facility]. Has Patient had Radioactive Injection for X-ray?: N TYPE CODE TESTS RESULT OUT OF RANGE REFERENCE UNITS LAB L3300.1500 84.8-378.0 ug/dL Normal DHEA SULF 146.0 4020 Performed By: #### L3100.5060, L3300.1500, L3300.6750, L3300.7100 #### [facility] (refer to report for specific site) refer to report for address and phone number THYROID ANTIBODIES Collected: 03/16/2018 Status: F Source: [place] 8:16 AM [facility] REPOSITORY Order Comment: TESTING ADDED TO BLOOD AT [facility]. MARY KAY WILL FILL OUT FAXED REQUEST AND FAX BACK TO [facility]. Has Patient had Radioactive Injection for X-ray?: N TYPE CODE TESTS RESULT OUT OF RANGE REFERENCE UNITS LAB L3300.6900 0-34 IU/mL Normal TPO AB 13 6676 LAB L3300.7027 0.0-0.9 IU/mL Normal TG AB < 1.0 Result Comment: Thyroglobulin Antibody measured by Nitin Brett Methodology Performed By: #### L3100.5060, L3300.1500, L3300.6750, L3300.7100 #### [facility] (refer to report for specific site) refer to report for address and phone number T3 REVERSE Collected: 03/16/2018 Status: F Source: [place] 8:16 AM [facility] REPOSITORY Order Comment: [facility] RE[facility] AND [facility]X BACK TO [facility]. Has Patient had Radioactive Injection for X-ray?: N TYPE CODE TESTS RESULT OUT OF RANGE REFERENCE UNITS LAB L3300.7100 9.2-24.1 ng/dL Normal T3 REVERSE 13.0 Performed By: #### L3100.5060, L3300.1500, L3300.6750, L3300.7100 #### [facility] (refer to report for specific site) refer to report for address and phone number [phone] Collected: Status: F Source: [place] 03/16/2018 8:16 AM [facility] REPOSITORY Order Comment: Has Patient had Radioactive Injection for X-ray?: N TYPE CODE TESTS RESULT OUT OF RANGE REFERENCE UNITS LAB L3100.9000 . ng/dL Normal HYDROXPROG 17 41 Result Comment: Adult Female Follicular 15 - 70 Luteal 35 - 290 This test was developed and its performance characteristics determined by [facility]. It has not been cleared or approved by the Food and Drug Administration. Performed at: [address] [id number] [place] Glazier: Dalton Castañeda MD, Phone: [phone] Performed By: #### L3100.9000 #### [facility] (refer to report for specific site) refer to report for address and phone number BREAST LIMITED Observed: 03/03/2018 Status: F Source: [place] UNILATERAL 2:09 PM [facility] REPOSITORY [facility] [address] [place] [address] Breast Limited Unilateral MR#: [id number] Acct: [id number] Name: OLIMPIA ALICIA Rep #: [id number] : 1985 F 32 From: Wicho Suarez MD PCP: Russel Moreland MD Status: REG CLI Study: Breast Limited Unilateral Date of Exam: 03/03/18 Exam# [id number] Ordering Dr: Melissa Buchanan MD STUDY: ULTRASOUND BREAST - RIGHT REASON FOR EXAM: Female, 32 years old. Pain in the right breast. TECHNIQUE: Axial and longitudinal images of the RIGHT breast were performed with a high resolution ultrasound transducer. COMPARISON: Comparison is made with prior mammogram done earlier today. FINDINGS: RIGHT Breast: The entire right breast was examined by ultrasound. There is homogeneous fibroglandular tissue. No solid or cystic mass lesion is seen. US/Breast Limited Unilateral IMPRESSION: Unremarkable sonographic examination of the breasts. ASSESSMENT CATEGORY: BIRADS Category 1: Negative. A letter regarding these results will be sent to the patient by the facility within 30 days. Electronically Signed: Wicho Suarez MD at 16:04 EDT Tel [phone], Service support , CC: Melissa Stringer MD; Russel Moreland MD Orthotic Finish Grinding Technician: Signed DIAG MAMM W/CAD, Observed: 03/03/2018 Status: F Source: [place] BILAT 2:09 PM [facility] REPOSITORY [facility] [address] [place] [address] DIAG MAMM W/CAD, BILAT MR#: [id number] Acct: [id number] Name: OLIMPIA ALICIA Rep #: [id number] : 1985 F 32 From: Wicho Suarez MD PCP: Russel Moreland MD Status: REG CLI Study: DIAG MAMM W/CAD, BILAT Date of Exam: 03/03/18 Exam# [id number] Ordering Dr: Melissa Buchanan MD MAMMOGRAPHY - BILATERAL SCREENING REASON FOR EXAM: Female, 32 years old. Routine annual screening examination. PERTINENT HISTORY: Non-contributory. Right breast is large in the left breast. TECHNIQUE: Digital bilateral breast katie (3D mammographic acquisition) in the CC and MLO projections. 2-D mediolateral oblique (MLO) and craniocaudad (CC) views of both breasts were obtained. CAD: Full Field Digital Mammography with Computer Added Detection was performed. COMPARISON: None. Baseline examination. FINDINGS: Breast Composition: The breasts are heterogeneously dense, which may obscure small masses. There are no dominant masses or suspicious calcifications. No other significant abnormalities are identified. BI/DIAG MAMM W/CAD, BILAT IMPRESSION: Negative screening mammogram. With the patient's history of fullness of the right breast, correlation with ultrasound is recommended. ASSESSMENT CATEGORY: BIRADS Category 0: Incomplete. Need additional imaging evaluation. A letter regarding these results will be sent to the patient by the facility within 30 days. Approximately 10% of breast cancers are not detected by mammography. A normal mammogram should not delay biopsy of a clinically suspicious abnormality. [id number] Electronically Signed: Wicho Suarez MD at 16:05 EDT Tel [phone], Service support , CC: Melissa Stringer MD; Russel Moreland MD Orthotic Finish Grinding Technician: Signed ALLERGIES ALLERGIES DATE TYPE / CODE NAME / CODE REACTION SEVERITY SOURCE 02/25/2017 Drug No Known Unknown [facility] Allergy/4160 Allergies/F00 Hospital 36464(SNOMED [id number](RXNOR Repository CT) M) ENCOUNTERS ENCOUNTERS ADMIT/DISCHARGE ACCOUNT ADMITTING ENCOUNTER LOCATION SOURCE NUMBER CLASS 07/12/2018 [id number] Ambulatory [place] [facility] ing:WOBLAB Repository 06/22/2018 [id number] Ambulatory [place] 0 [facility] ing:WOBLAB Repository 05/10/2018 [id number] [place]ulatory [place] [facility] ing:WOBLAB Repository 03/16/2018 [id number] Ambulatory [place] 5 [facility] ing:LAB Repository 03/03/2018 [id number] Ambulatory [place] [facility] ing:OPBI Repository PAYERS PAYERS ENCOUNTER GUARANTOR PAYER SUBSCRIBER SOURCE 07/12/2018 OLIMPIA Torres Primary [place] [id number] Insurance:ANTHEMPolic JEAN CLAUDE TOCADOB: Counts Include [facility] [place] y Number: [id number] [id number] Repository [address]Yuv: [phone]) fitz Date:[id number] [phone] () [address] [place] [address]CW: 07/12/2018 Secondary NOT GIVENUNK [place] Insurance:SELF PAY [facility] Number: Effective Repository Date:2018-07-12 06/22/2018 OLIMPIA Torres Primary [address] [place] [id number] Insurance:ANTHEMPolic JEAN CLAUDE TOCADOB: Counts Include 234 [facility] [place] y Number: [id number] [place], [place] [id number] Repository [address]Nsh: [phone]) fitz Date:[id number] [phone] () [address]JXEMTG, [place] [address]QK: 06/22/2018 Secondary NOT GIVENUNK [place] Insurance:SELF PAY [facility] Number: Effective Repository Date:2018-06-22 05/10/2018 OLIMPIA Torres Primary [address] [place] [id number] Insurance:ANTHEMPolic JEAN CLAUDE TOCADOB: Counts Include 234 [facility] [place] y Number: [id number], [place] [id number] Repository [address]Ven: [phone]) fitz Date:[id number] [phone] () [address] MUKHERJEE [address]GV: 05/10/2018 Secondary NOT GIVENUNK [place] Insurance:SELF PAY Counts Include [facility] Effective Repository Date:2018-05-10 03/16/2018 OLIMPIA Torres Primary [address]A [id number] Insurance:ANTHEMPolic JEAN CLAUDE TOCADOB: Community [place] y Number: [id number], [place] [id number] Repository [address]Dfl: [phone]) fitz Date:1930-08-62JQ [phone] () [address]DGHPP, [place] [address]KZ: 03/16/2018 Secondary NOT GIVENUNK [place] Insurance:SELF PAY [facility] Number: Effective Repository Date:2018-03-15 03/03/2018 Olimpia Primary [address] [place] [id number] Insurance:ANTHEMPolic JEAN CLAUDE TOCADOB: Community [place] y Number: [id number], [place] [id number] Repository [address]Ocx: [phone] fitz Date:[id number] [phone] () [address]FPIVLJ, [place] [address]HO: 03/03/2018 Secondary NOT GIVENUNK [place] Insurance:SELF PAY [facility] Number: Effective Repository Date:2018-02-26
== END ==
PROVIDERS: Visit Provider Obstetrics & Gynecology
DX: Z34.81 Encounter for supervision of other normal pregnancy, first trimester (principal)
CPT/HCPCS: 36415; 84144

== ENCOUNTER 2018-08-28 10:48 | Observation (INO) | payer BC, SELFPAY ==
[2018-08-28 10:49] VITALS: BP 120/62; PULSE 86; RESP 18; TEMP 36.6; O2SAT 98; BMI 29.1
[2018-08-28 12:06] LABS: Absolute Lymphocyte Count 1.77 X10^3/ul (0.83-4.51); Absolute Neutrophil Count 8.6 X10^3/uL (2.0-7.7); Basophil# 0.03 X10^3/uL; Basophil% 0.3 % (0-1); Eosinophils% 0.9 % (0-5); Hematocrit 38.6 % (37-47); Hemoglobin 13.3 g/dl (12.0-15.0); Lymphocyte # 1.77 X10^3/ul (4.0); Mean Corp Hgb Conc 34.5 g/gl (32-36); Mean Corpuscular Hgb 33.2 pg (27.0-32.0); Mean Corpuscular Volume 96.3 fL (81-99); Mean Platelet Vol. 11.7 fl (6.2-12.0); Monocyte# 0.57 X10^3/uL; Monocyte% 5.1 % (0-10); Neutrophil # 8.58 X10^3/uL (2.7-7.7); Neutrophil % 77.5 % (47-70); Platelet Count 214 K/mm3 (150-450); RBC Distribution Width CV 12.2 % (11.6-14.6); RBC Distribution Width SD 42.9 fl (35.1-43.9); Red Blood Count 4.01 M/mm3 (4.2-5.4); White Blood Count 11.1 K/mm3 (4.4-11.0)
[2018-08-28 12:07] LABS: POSITIVE COUNT NO; POSITIVE DIFFERENTIAL NO; POSITIVE MORPHOLOGY NO
[2018-08-28 12:09] LABS: Anion Gap 12 (5-15); BUN 6 mg/dL (7-18); BUN/Creat Ratio 9.4 RATIO (10-20); Calcium,Total 8.9 mg/dL (8.5-10.1); Chloride 106 mmol/L (98-107); Creatinine, Serum 0.64 mg/dL (0.55-1.02); EST Glomerular Filtration Rate 113 mL/min (>60); Est Glom Filt Rate - Afr Amer 136 mL/min (>60); Estimated Creatinine Clearance 111.45 ml/min; Glucose 88 mg/dL (74-106); Potassium 3.8 mmol/L (3.5-5.1); Sodium Level 141 mmol/L (136-145)
[2018-08-28] MEDS: Ondansetron 4 MG/2 ML Vial IV (12:09)
[2018-08-28] MEDS: Morphine 4 MG/ML Syringe IV (12:13)
[2018-08-28] MEDS: 0.9% Normal Saline 1,000 ML 150 ML IV (12:14)
[2018-08-28 12:29] LABS: Color, Urine Amber (Yellow); Glucose, Dipstick Normal (Normal); Ketone-Dipstick Negative (Negative); Leukocyte Esterase-Dipstick 500 /ul (Negative); Mucous, Urine 0 SEEN /hpf (<or=2+); Nitrite-Dipstick Negative (Negative); Occult Blood-Urine 250 /ul (Negative); Protein-Dipstick 30 mg/dl (Negative); Urine Bilirubin Dipstick Negative (Negative); Urine Clarity Sl. Cloudy (Clear); Urine Urobilinogen Normal (Normal)
[2018-08-28 12:37] LABS: Bacteria RARE /hpf (None Seen); Red Blood Cells-Urine 25-50 SEEN /hpf (0-5); Squamous Epithelial Cells - UA 0-5 SEEN /hpf (5-10); White Blood Cells 5-10 SEEN /hpf (0-5)
[2018-08-28 12:41] LABS: hCG Titer Quant., Serum 1191 mIU/mL (<9 non-preg)
--- NOTE | 2018-08-28 13:26 | ED.VISSUMM ---
- ER Visit Summary Date of Service: 08/28/18 Chief Complaint: Vaginal bleeding and History of Present Illness: The patient is a 33 F Ab1 who is approximately 15 weeks . Patient states she started having bleeding and cramping yesterday. She was seen by Dr. Uziel Goss. She reports an ultrasound showed a clot by the baby but heart rate was good. She reports increased cramping overnight that was not well controlled with Tylenol. Bleeding is similar to yesterday or slightly improved. On review of records patient appears to have blood type of A+. Physical Examination: Vital signs unremarkable. Patient sitting upright in bed. She appears comfortable. Head neck examination normal. Heart is regular rate and rhythm. Lung sounds are clear. Abdomen is soft with mild diffuse lower abdominal tenderness. No guarding or rebound. Manual pelvic examination reveals cervix to be high and posterior. Cervix is closed. She has mild active bleeding. Test Results: CBC was white count 11.1 with hemoglobin 13.3. Chemistry studies normal. Urinalysis shows blood but no sign of acute infection. Emergency Department Course and Treatment: Patient was given IV fluids, morphine, Zofran. heart tones were obtained by nurse and estimated to be between 140-150. On repeat evaluation patient reports still having significant cramping, but not as frequent as it was. I spoke with Dr. Hensley. At this time she advised patient should have pelvic rest. We can write her something stronger for pain if Tylenol is not adequate. She is to follow-up in the office on Thursday or Thursday. Treatment Plan: [] Disposition: Discharge Impression: Threatened miscarriage This note was generated with [facility] dictation software. It may contain incorrect words, spelling, and punctuation that were not noted in review of the chart prior to signing ED Disposition - Plan for ED Patient: Chief Complaint: Vag Bld, Preg Referrals: Ken Fuentes MD [Primary Care Provider] -
--- NOTE | 2018-08-28 13:29 | ED.DEP ---
ED Disposition - Plan for ED Patient: Disposition: Home or Assisted Living Chief Complaint: Vag Bld, Preg Instructions: ED Miscarriage Poss Prescriptions: Oxycodone [Oxyir] 5 mg PO Q6H PRN PRN 3 Days #10 tablet PRN Reason: Pain Referrals: Melissa Stringer MD [STAFF PHYSICIAN] - 2 Days
[2018-08-28 13:44] VITALS: BP 109/70; PULSE 56; RESP 18; O2SAT 100
--- NOTE | 2018-08-28 17:24 | PCM.HPOB.BLA ---
History and Physical Date of Admission: 08/28/18 HISTORY OF PRESENT ILLNESS: On 08/28/2018, Keyanna Pratt, a 33 year old female 0 0 1 0 0, presented for: DIRECT ADMISSION TO [facility] for PAIN CONTROL. -- Keyanna returns for inpatient management of her abdominal pain, n/v. She is 15 wk EGA and has seen Dr Uziel Goss for evaluation. Increased bleeding and cramping started (2 d ago). relates she has been spotting since 8 wks or so. 08/27/18 office ultrasound showed a free floating clot in the amniotic sac. +FHT Xiomara reports further increased cramping overnight that was not well controlled with Tylenol . Bleeding is similar to yesterday or slightly improved. Blood type A+. EDC 02/19/19 15 wk EGA Ultrasounds have confirmed viable IUP but with a fibroid uterus. She called in at 2 am today with CC of bad cramping, and vaginal bleeding. The bleeding was not as heavy today as when seen in office 08/27/18. She has been taking Tylenol 1000 mg q 6 hrs. MFM consultation planned due to continued bleeding in second trimester with a fibroid uterus and growth of fibroids noted. She had been in to [facility] emergency department earlier today, was given IV fluids, morphine, Zofran and was sent home with an RX for Oxycodone 5 mg tabs. She took a tablet, and vomited. She is still painful. She was given option for outpatient trial of management including antiemetics and the Oxycodone with continued Tylenol and declined this in favor of inpatient management of her current pain. EB LABS earlier today: CBC was white count 11.1 with hemoglobin 13.3. Chemistry studies normal. Urinalysis shows blood but no sign of acute infection. EB ALLERGIES: No Known Drug Allergies MEDICATIONS HISTORY: Current medications prescribed by our practice are: 1. levothyroxine 100 mcg tablet, One pill by mouth once a day REVIEW OF SYSTEMS: GENERAL - Denies fever, or chills SKIN - Denies skin changes EYES - Denies visual changes EARS - Denies difficulty hearing NOSE - Denies nasal congestion or bleeding MOUTH - Denies sore throat or difficulty swallowing NECK - Denies pain or swelling RESPIRATORY - Denies shortness of breath or wheezing CARDIOVASCULAR - Denies palpitations or chest pain GASTROINTESTINAL - Denies nausea, vomiting, diarrhea, constipation GENITOURINARY - Denies dysuria, frequency of urination, incontinence of urine MUSCULOSKELETAL - Denies joint or muscle pain NEUROLOGICAL - Denies localized numbness or weakness PSYCHIATRIC - Denies depression or anxiety ENDOCRINE - Denies heat or cold intolerance, weight loss or gain HEMATO-IMMUNOLOGIC - Denies excesive bleeding with cuts PAST HISTORY: Breast/Ovarian/Colon Cancers - Denies Infections - Bronchitis, Chicken pox, Hepatitis A, Measles and Pneumonia Illnesses - Hepatitis A (?), age 5 Accidents - no injuries of consequence History of Abnormal PAPS - Denies Hospitalizations - see surgery Thinks NO chickenpox; SURGICAL HISTORY: 1. oral surgery- gums - 2014 2. 02/27/2017 suction D and C Melissa Goss MD MENSTRUAL HISTORY: LMP Known?- Definite Amount/Duration - 5-6 DAYS, Regularity - Regular, Frequency - monthly days, LMP - 05/08/18, Age Onset Menarche - 12 PAST PREGNANCIES: Total Pregnancies - 2; Full Term Pregnancies - 0; Premature - 0; Abortions, Induced - 0; Abortions, Spontaneous - 1; Ectopics - 0; Multiple Births - 0; Living Children - 0 FAMILY HISTORY: Father - Age 69, Myocardial infarction at greater than 60; Mother - FH: Diabetes mellitus type 2; Mother - Hypertension; Mother - Unknown Disease; Aunt - Lupus erythematosus; Maternal Grandparent - FH: Diabetes mellitus type 2; SOCIAL HISTORY: Alcohol Use - None Smoking - Never Diet - balanced Diet, caffeine < 2 drinks per day and water intake about 8 glasses daily. Lifestyle - relocated from [place] 2014 Exercise - yoga at times. Enc to walk 20 min day. 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 Initially sitting on toilet (passed fetus into toilet while changing) HEENT - Normocephalic, PERRLA, EOMI NECK - no nuchal rigidity ABDOMEN - enlarged uterus (multiple fibroids ) EXTREMITIES - No edema or calf tenderness PSYCHIATRIC - A and O to time, place, person, mood and affect. Crying, tearful. Fetus passed into toilet. Retrieved from toilet and put into basin initially (to be wrapped in blanket). PELVIC EXAM: external genitalia WNL. no lacerations noted. Minimal to mod lochia rubra noted. FETUS inspected with parents: no gross anomalies. Fingers , toes intact. Back intact, Normal facial features for EGA with eyes fused. Appears to be male. ASSESSMENT: 1. Completed Spontaneous 2. Maternal Care For Other Abnormalities Of Gravid Uterus, Second Trimester 3. Lower Abdominal Pain, Unspecified -- resolved with completed SAB PLAN BY DIAGNOSIS: 1. Completed Spontaneous , Lower Abdominal Pain, Unspecified Planned inpatient observation for pain management but pain is gone now with completed SAB. Pain due to cervical dilation, labor. Fetus retrieved from toilet and will send to path if patient request. Grief counseling, memory packet from OB dept and discussion re arrangements vs to lab. Discussed findings on sono-- Multiple fibroids as likely risk factor for SAB, completed. Placenta completely passed with small adherent clot consistent with placental abruption. Will discharge home this evening after counseling, supportive care. Cancel the observation visit. The visit was approximately 25 minutes in length with most of the time spent in discussion and counseling. 2. Intramural Leiomyoma Of Uterus, Leiomyoma Of Uterus, Unspecified, Maternal Care For Other Abnormalities Of Gravid Uterus and Second Trimester Known uterine fibroids. Plan referral to Reproductive endocrinology, infertility for consultation re fibroid uterus Consider myomectomy
[2018-08-28 17:41] VITALS: BMI 29.1
--- NOTE | 2018-08-28 17:41 | NURSING ---
PT GOT UP TO BATHROOM TO CHANGE INTO GOWN AND CHANGE HER PAD AND UNDERWEAR. THIS NURSE EXCUSED HERSELF TO BRING PT WIPES TO CLEAN UP. UPON RETURNING, PT WAS HEARD DOWN SENIOR CRYING, SPOUSE WITH PT COMFORTING HER. PRIVACY GIVEN AT THIS TIME.
--- NOTE | 2018-08-28 17:45 | NURSING ---
late entry - Amy [facility] obtained vitals, but did not get them entered into chart. VS were 131/68, pulse 84, resps 18, pulse ox 100% on RA, temp 98.2 oral.
--- NOTE | 2018-08-28 18:35 | PCM.DC ---
You will use the following diet at home:: No restrictions Discharge Activity: May Shower, May Take a Tub Bath Return to work on:: 09/03/18 May resume sexual activity in: 2 weeks Lifting Restrictions: no lifting restrictions Call your doctor if you observe: Fever of 101 or Higher, Using more than one pad per hour, Uncontrolled pain Instructions: ED Miscarriage Poss Additional Instructions: Keep your appointment with Dr Uziel Goss for follow up after miscarriage, and further questions or discussion. Allergies/Adverse Reactions: Allergies No Known Allergies Allergy (Verified 08/28/18 16:51) Medications to take at Discharge Levothyroxine [Synthroid] 100 mcg PO DAILY 08/28/18 Methylergonovine [Methergine] 0.2 mg PO Q6H #4 tablet 08/28/18 [place]-3 Fatty Acids [Fish Oil] 500 mg PO DAILY 08/28/18 Pnv No.95/Ferrous Fum/Folic AC [ Formula] 1 each PO 08/28/18 RX: Oxycodone [Oxyir] 5 mg PO Q6H PRN PRN 3 Days #10 tablet 08/28/18 The following prescriptions were given: RX: Oxycodone [Oxyir] 5 mg PO Q6H PRN PRN 3 Days #10 tablet PRN Reason: Pain Methylergonovine [Methergine] 0.2 mg PO Q6H #4 tablet Primary Care Physician: Melissa Stringer MD [STAFF PHYSICIAN] - 2 Days Test Results: Test results from this visit will be discussed in further detail at your follow-up appointment, if applicable. Please Follow Up With: Melissa Stringer MD - [phone] When: on Thursday09/03/18 as scheduled Proposed Discharge Date: 08/28/18
--- NOTE | 2018-08-28 18:39 | DCINST_ITS ---
You will use the following diet at home:: No restrictions Discharge Activity: May Shower, May Take a Tub Bath Return to work on:: 09/03/18 May resume sexual activity in: 2 weeks Lifting Restrictions: no lifting restrictions Call your doctor if you observe: Fever of 101 or Higher, Using more than one pad per hour, Uncontrolled pain Instructions: ED Miscarriage Poss Additional Instructions: Keep your appointment with Dr Uziel Goss for follow up after miscarriage, and further questions or discussion. Allergies/Adverse Reactions: Allergies No Known Allergies Allergy (Verified 08/28/18 16:51) Medications to take at Discharge Levothyroxine [Synthroid] 100 mcg PO DAILY 08/28/18 Methylergonovine [Methergine] 0.2 mg PO Q6H #4 tablet 08/28/18 [place]-3 Fatty Acids [Fish Oil] 500 mg PO DAILY 08/28/18 Pnv No.95/Ferrous Fum/Folic AC [ Formula] 1 each PO 08/28/18 RX: Oxycodone [Oxyir] 5 mg PO Q6H PRN PRN 3 Days #10 tablet 08/28/18 The following prescriptions were given: RX: Oxycodone [Oxyir] 5 mg PO Q6H PRN PRN 3 Days #10 tablet PRN Reason: Pain Methylergonovine [Methergine] 0.2 mg PO Q6H #4 tablet Primary Care Physician: Melissa Stringer MD [STAFF PHYSICIAN] - 2 Days Test Results: Test results from this visit will be discussed in further detail at your follow- up appointment, if applicable. Please Follow Up With: Melissa Stringer MD - [phone] When: on Thursday09/03/18 as scheduled Proposed Discharge Date: 08/28/18
--- NOTE | 2018-08-28 19:48 | NURSING ---
OB NURSE, DYLON, CAME TO UNIT AND SPOKE WITH PT AND SPOUSE. SHE CLEANED FETUS AND WRAPPED IN SMALL BLANKET FOR PARENTS TO HOLD. PARENTS DECLINED TO HAVE [facility] TAKE PICTURES BUT THEY DID TAKE PICTURES THEMSELVES. MOM HELD BABY FOR QUITE SOME TIME, CRYING AT TIMES. DAD SUPPORTIVE TO MOM, ALSO TEARFUL.
--- NOTE | 2018-08-28 19:52 | NURSING ---
174-DR ABREU CAME TO ROOM. FETUS WAS REMOVED FROM TOILET AND PLACED IN SPECI HAT. AFTER DR ABREU STEPPED OUT AND PT WAS RESTING BACK IN BED, THE FETUS WAS BROUGHT TO BEDSIDE PER MOMS REQUEST. MOM AND DAD SAT AND LOOKED AT BABY FOR SEVERAL MINUTES, TEARFUL.
--- NOTE | 2018-08-28 20:24 | NURSING ---
When this RN entered room, mother had been discharged and baby laying in blanket on bed. Baby's weight and length obtained by this RN. Baby's weight was 35 grams and length 12.5 cm. Baby with intact umbilical cord and placenta placed and wrapped in postmortem box and transported to for disposition per report from [facility].
--- NOTE | 2018-08-29 07:55 | NURSING ---
unknown start of labor time pt. had been cramping throughout the day and started bleeding with admission to floor .
--- NOTE | 2018-08-29 08:05 | NURSING ---
see Dr Hensley H&P for events.
--- NOTE | 2018-08-31 08:04 | PCM.DC.SUM ---
Discharge Date and Diagnosis Date of Admission: 08/28/18 - 15 wk pain, vaginal bleeding Date of Discharge: 08/28/18 - 15 wk [facility] Hospital Course and Treatment Summary of Care Provided: The patient is a 33 year old [id number] female at 15 wk EGA with large fibroid uterus. Seen in ED earlier in day for abdominal pain . Cervix closed. Less bleeding than in past few days. +FHT. Sent home for expectant management with OxyIR for pain. returned for direct admission to [facility] for pain management with continued vaginal bleeding and cramping. While she was being admitted to med surg, changing into gown she went in to the bathroom and passed the intact 15 wk fetus with attached placenta intact. Pain resolved. Grief counseling initiated. Elected to go home then soon after delivery . - Physical Exam Vital Signs Temp Pulse Resp BP Pulse Ox 98 F 56 L 18 109/70 100 08/28/18 10:49 08/28/18 13:44 08/28/18 13:44 08/28/18 13:44 08/28/18 13:44 Oxygen Delivery Method Room Air Weight: 79.379 kg Body Mass Index (BMI) 29.1 Discharge Activity: May Shower, May Take a Tub Bath Return to work on:: 09/03/18 May resume sexual activity in: 2 weeks Call your doctor if you observe: Fever of 101 or Higher, Using more than one pad per hour, Uncontrolled pain Home Medications: Medications to take at Discharge Levothyroxine [Synthroid] 100 mcg PO DAILY 08/28/18 Methylergonovine [Methergine] 0.2 mg PO Q6H #4 tablet 08/28/18 [place]-3 Fatty Acids [Fish Oil] 500 mg PO DAILY 08/28/18 Pnv No.95/Ferrous Fum/Folic AC [ Formula] 1 each PO 08/28/18 Following Prescrptions Were Given to Patient: Methylergonovine [Methergine] 0.2 mg PO Q6H #4 tablet Primary Care Physician: Melissa Stringer MD [STAFF PHYSICIAN] - 2 Days Please Follow Up With: Melissa Stringer MD - [phone] When: on Thursday09/03/18 as scheduled Patient Instructions: ED Miscarriage Poss Medical Necessity - Tobacco Use Smoking Status: Never smoker Meaningful Use Info Meaningful Use Diagnoses (Choose all that apply): None applicable
--- NOTE | 2018-08-31 08:08 | DS.PCM_ITS ---
Discharge Date and Diagnosis Date of Admission: 08/28/18 - 15 wk pain, vaginal bleeding Date of Discharge: 08/28/18 - 15 wk [facility] Hospital Course and Treatment Summary of Care Provided: The patient is a 33 year old [id number] female at 15 wk EGA with large fibroid uterus. Seen in ED earlier in day for abdominal pain . Cervix closed. Less bleeding than in past few days. +FHT. Sent home for expectant management with OxyIR for pain. returned for direct admission to [facility] for pain management with continued vaginal bleeding and cramping. While she was being admitted to med surg, changing into gown she went in to the bathroom and passed the intact 15 wk fetus with attached placenta intact. Pain resolved. Grief counseling initiated. Elected to go home then soon after delivery . - Physical Exam Vital Signs Temp Pulse Resp BP Pulse Ox 98 F 56 L 18 109/70 100 08/28/18 10:49 08/28/18 13:44 08/28/18 13:44 08/28/18 13:44 08/28/18 13:44 Oxygen Delivery Method Room Air Weight: 79.379 kg Body Mass Index (BMI) 29.1 Discharge Activity: May Shower, May Take a Tub Bath Return to work on:: 09/03/18 May resume sexual activity in: 2 weeks Call your doctor if you observe: Fever of 101 or Higher, Using more than one pad per hour, Uncontrolled pain Home Medications: Medications to take at Discharge Levothyroxine [Synthroid] 100 mcg PO DAILY 08/28/18 Methylergonovine [Methergine] 0.2 mg PO Q6H #4 tablet 08/28/18 [place]-3 Fatty Acids [Fish Oil] 500 mg PO DAILY 08/28/18 Pnv No.95/Ferrous Fum/Folic AC [ Formula] 1 each PO 08/28/18 Following Prescrptions Were Given to Patient: Methylergonovine [Methergine] 0.2 mg PO Q6H #4 tablet Primary Care Physician: Melissa Stringer MD [STAFF PHYSICIAN] - 2 Days Please Follow Up With: Melissa Stringer MD - [phone] When: on Thursday09/03/18 as scheduled Patient Instructions: ED Miscarriage Poss Medical Necessity - Tobacco Use Smoking Status: Never smoker Meaningful Use Info Meaningful Use Diagnoses (Choose all that apply): None applicable
== END 2018-08-28 19:25 | disposition home or self-care (01) ==
LOC: ED 13:30 → MS3 17:02
PROVIDERS: Admitting Provider Obstetrics & Gynecology; Emergency Provider Emergency Medicine; Family Provider Family Medicine; PCP Family Medicine; Referring Provider Obstetrics & Gynecology; Visit Provider Obstetrics & Gynecology
DX: O03.9 Complete or unspecified spontaneous abortion without complication (principal); Z3A.15 15 weeks gestation of pregnancy; D25.1 Intramural leiomyoma of uterus; O34.12 Maternal care for benign tumor of corpus uteri, second trimester
CPT/HCPCS: 80048; 81001; 84702; 85025; 96374; 96375; 99218; 99283; J7030; A4216; G0378; J2405

== ENCOUNTER → 2018-09-03 16:38 | Outpatient (CLI) | payer BC, SELFPAY ==
[2018-08-28 17:41] VITALS: BMI 29.1
[2018-09-03 16:44] LABS: Bacteria 0 SEEN /hpf (None Seen); Mucous, Urine 0 SEEN /hpf (<or=2+); Squamous Epithelial Cells - UA 0 SEEN /hpf (5-10); White Blood Cells 0 SEEN /hpf (0-5)
[2018-09-03 17:02] LABS: Hematocrit 38.5 % (37-47); Hemoglobin 13.4 g/dl (12.0-15.0)
[2018-09-03 17:55] LABS: Color, Urine Red (Yellow); Glucose, Dipstick Normal (Normal); Ketone-Dipstick Negative (Negative); Leukocyte Esterase-Dipstick 100 /ul (Negative); Nitrite-Dipstick Positive (Negative); Occult Blood-Urine 250 /ul (Negative); Protein-Dipstick 100 mg/dl (Negative); Urine Bilirubin Dipstick Negative (Negative); Urine Clarity Sl. Cloudy (Clear); Urine Urobilinogen Normal (Normal)
[2018-09-03 18:08] LABS: Red Blood Cells-Urine > 100 SEEN /hpf (0-5)
== END ==
PROVIDERS: Visit Provider Obstetrics & Gynecology
DX: O03.9 Complete or unspecified spontaneous abortion without complication (principal)
CPT/HCPCS: 36415; 81001; 85014; 85018; 87086; 87088

== ENCOUNTER → 2019-06-29 13:52 | Outpatient (CLI) | payer BC, SELFPAY ==
[2019-06-29 16:27] LABS: Hematocrit 34.2 % (37-47); Hemoglobin 11.9 g/dL (12.0-15.0); Mean Corp Hgb Conc 34.8 g/dL (32-36); Mean Corpuscular Volume 100.6 fL (81-99); Mean Platelet Vol. 12.1 fl (6.2-12.0); Platelet Count 237 K/mm3 (150-450); RBC Distribution Width SD 43.7 fl (35.1-43.9); White Blood Count 8.5 K/mm3 (4.4-11.0)
[2019-06-29 16:41] LABS: POSITIVE DIFFERENTIAL NO; Scan Indicated on CBC? Y/N NO
[2019-06-29 16:52] LABS: Ferritin 46 ng/mL (8-252); Thyroid Stim Hormone (TSH) 1.37 uIU/mL (0.358-3.74)
[2019-06-29 16:53] LABS: Vitamin D,25 Hydroxy 24.9 ng/mL (29.95-100.01)
== END ==
PROVIDERS: Visit Provider Obstetrics & Gynecology
DX: O26.892 Other specified pregnancy related conditions, second trimester (principal); Z3A.00 Weeks of gestation of pregnancy not specified; R53.83 Other fatigue
CPT/HCPCS: 82306; 82728; 84443; 85027

== ENCOUNTER → 2019-09-06 | Outpatient (CLI) | payer BC, SELFPAY ==
[2019-09-06 10:42] LABS: Hematocrit 31.9 % (37-47); Hemoglobin 11.1 g/dL (12.0-15.0); Mean Corp Hgb Conc 34.8 g/dL (32-36); Mean Corpuscular Hgb 34.7 pg (27.0-32.0); Mean Corpuscular Volume 99.7 fL (81-99); Mean Platelet Vol. 11.4 fl (6.2-12.0); Platelet Count 225 K/mm3 (150-450); RBC Distribution Width CV 11.4 % (11.6-14.6); RBC Distribution Width SD 41.6 fl (35.1-43.9); White Blood Count 8.5 K/mm3 (4.4-11.0)
[2019-09-06 10:46] LABS: Glucose Challenge Gest 1H 50g 138 mg/dL (70-140)
[2019-09-08 17:42] LABS: Ferritin 9 ng/mL (8-252)
[2019-09-08 17:58] LABS: Vitamin B12 430 pg/mL (211-911)
== END | disposition home or self-care (01) ==
LOC: WOBLAB 09:45
PROVIDERS: Visit Provider Obstetrics & Gynecology
DX: Z34.83 Encounter for supervision of other normal pregnancy, third trimester (principal)
CPT/HCPCS: 36415; 82607; 82728; 82950; 85027

== ENCOUNTER → 2019-10-25 | Outpatient (CLI) | payer BC, SELFPAY | END | disposition home or self-care (01) | LOC: LABSPEC 14:06 | PROVIDERS: PCP Family Medicine; Visit Provider Obstetrics & Gynecology | DX: Z36.85 Encounter for antenatal screening for Streptococcus B (principal) | CPT/HCPCS: 87081 ==

== ENCOUNTER 2019-11-02 05:05 | Inpatient (IN) | payer BC, SELFPAY ==
--- NOTE | 2019-11-01 08:43 | PLAC_PTH ---
PATIENT: OLIMPIA LEECT #:[id number] LOC: WP U#:[id number] AGE/SX: 34/F [facility]: Dr. Melissa Goss MD : 1985 BED: 1 DIS: 11/05/2019 SPEC #: [id number] RECD: 11/02/19 09:25 STATUS: SCOOTER RAMIRES #: [id number] JACQUELINE: 11/01/19 08:[address]: Melissa Reddy DEPT: SURGICAL PATHOLOGY RECD BY: Bobby Basurto ENTERED: 11/02/19 12:17 SP TYPE: PLACENTA OTHR DR: Dr. Ken Fuentes MD Tissues: Placenta, NOS Procedures: Surgery Specimen Level V HEADER OPERATION: Primary section PRE-OP DIAGNOSIS: Oligohydramnios, infertility history TISSUE SUBMITTED: Placenta MICROSCOPIC DIAGNOSIS Dougherty placenta (432 gm): Umbilical cord - trivascular with no inflammation. Placental membranes - minimal chronic decidual inflammation. Placental disc - mild Marcin-Romeo change. AM:donaldo 11/04/19 MICROSCOPIC DESCRIPTION Slides are reviewed. GROSS DESCRIPTION SPECIMEN: PLACENTA / CLINICAL INFORMATION: A. Weight: 2.69 kg B. Gestational Age: 37 weeks C. Sex: Male PLACENTAL WEIGHT (POST FIXATION): 432 gm PLACENTAL DIMENSIONS: 17 x 16 x 2.8 cm PLACENTAL SHAPE: Usual ovoid PLACENTAL WEIGHT FOR GESTATIONAL AGE: Within 10-99th percentile MEMBRANES - Present A. Insertion: Marginal B. Site of rupture from edge: 2 cm from edge of placental disc C. Color of membrane: Villarreal-gutierrez D. Abnormalities: None UMBILICAL CORD - Present A. Color: Villarreal-gutierrez B. Insertion: Near central C. Length: 26 cm D. Diameter: 1.2 cm E. Number of vessels: Three F. Abnormalities: None PLACENTAL DISC - Present A. Color of surface: Villarreal-gutierrez B. surface abnormalities: None C. Maternal cotyledons: Intact with minimal tears D. Attached retro placental clot: No clot E. Cut surface: Dark red and spongy F. Lesions: None G. Separate clot: Absent SECTIONS SUBMITTED: 1. Umbilical cord ( end notched) 2. Umbilical cord, placental end 3. Membrane roll 4. Placental disc, and maternal surfaces 5. Placental disc, and maternal surfaces 6. Placental disc, and maternal surfaces AM:donaldo 11/03/19 TC:3 CPT: 19089
[2019-11-02] VITALS (15 sets, daily range): BP systolic 90–106; BP diastolic 42–75; PULSE 56–70; RESP 16–18; TEMP 36.4–36.8; O2SAT 98–100; BMI 30.7
[2019-11-02] MEDS: Lactated Ringers 1,000 ML 999 ML IV (04:15)
[2019-11-02 05:58] LABS: Absolute Lymphocyte Count 2.55 X10^3/uL (0.83-4.51); Absolute Neutrophil Count 5.5 X10^3/uL (2.0-7.7); Basophil# 0.05 X10^3/uL; Basophil% 0.6 % (0-1); Eosinophil# 0.08 X10^3/uL; Eosinophils% 0.9 % (0-5); Hematocrit 31.7 % (37-47); Hemoglobin 10.8 g/dL (12.0-15.0); Lymphocyte # 2.55 X10^3/ul (4.0); Lymphocyte % 28.7 % (19-41); Mean Corp Hgb Conc 34.1 g/dL (32-36); Mean Corpuscular Hgb 33.6 pg (27.0-32.0); Mean Corpuscular Volume 98.8 fL (81-99); Mean Platelet Vol. 12.2 fl (6.2-12.0); Monocyte# 0.62 X10^3/uL; NRBC Flagged by Analyzer 0 % (0-5); Neutrophil # 5.51 X10^3/uL (2.7-7.7); Neutrophil % 61.9 % (47-70); Platelet Count 197 K/mm3 (150-450); RBC Distribution Width CV 12.4 % (11.6-14.6); RBC Distribution Width SD 44.5 fl (35.1-43.9); Red Blood Count 3.21 M/mm3 (4.2-5.4); White Blood Count 8.9 K/mm3 (4.4-11.0)
[2019-11-02] MEDS: Lactated Ringers 1,000 ML 150 ML IV (06:32)
[2019-11-02] MEDS: Sodium Citrate/Citric Acid 30 ML UDC PO (07:16)
[2019-11-02] MEDS: Cefazolin 2 GM in 0.9% Normal Saline 100 ML IV (07:23)
--- NOTE | 2019-11-02 08:28 | OP.PCM_ITS ---
Problem List (1) Oligohydramnios Status: Acute Qualifiers: Trimester: third trimester (2) 37 weeks gestation of Status: Acute (3) H/O: myomectomy Status: Acute Report of Operation Date of Procedure: 11/02/19 Pre-Operative Diagnosis: 37 1/7wga, hx prior myomectomy, oligohydrmanios Post-Operative Diagnosis: 37 1/7wga, hx prior myomectomy, oligohydrmanios Surgery/Procedure Performed:: Primary low transverse section Description of Surgical Findings:: Normal tubes and ovaries bilaterally Small anterior and posterior myometrial fibroids noted on palpation only without distortion of uterine shape. heating plant superintendent: Marsha Allison Type of Anesthesia:: Spinal Anesthesiologist: Paco Blandon Specimen's removed: placenta Estimated Blood Loss (mL): 900 Fluids Replaced: 1200 ml Description of Procedure: The patient was taken to the operating room and spinal analgesia was administered. She is placed in a dorsal supine position with left lateral tilt. The perineum and abdomen were prepped and draped in sterile fashion. And the spinal was found to be adequate. A Pfannenstiel incision was made using a scalpel and brought down to incise the subcutaneous tissue and rectus fascia at the midline. Subcutaneous tissue was bluntly dissected off the fascia laterally. The fascial incision was dissected laterally and cephalad using curved Kenyon scissors. The superior leaflet of the rectus fascia was grasped using Ana María clamps and bluntly dissected and sharply dissected from the un derlying rectus muscle. In a similar fashion the inferior rectus fascia was dissected from the underlying muscle. The rectus muscles were bluntly at the midline. The peritoneum was identified and entered [sharply]. The bladder blade was placed into the abdomen and the vesicouterine peritoneal fold identified. The fold was incised and a bladder flap created. Bladder blade was then repositioned to the abdomen. A low transverse hysterotomy was made using the [Metzenbaum scissors] to level of the membranes. The hysterotomy was extended bluntly cephalad and caudad. The membranes were then ruptured revealing clear fluid. The head was elevated and brought to the level of the hysterotomy and the infant delivered revealing vigorous [male] infant. The cord was doubly clamped and cut after 30 seconds. The infant was passed to awaiting [nursery personnel]. The placenta was [expressed] from the uterus and appeared intact on inspection. The uterus was exteriorized and cleared of debris. The hysterotomy was then repaired using 0 Vicryl running lock suture. A second imbricating layer was also placed for additional hemostasis. The posterior culdesac was drained and the uterus and adnexae returned to the abdomen. The bladder blade was removed. The anterior cul-de-sac was cleared of debris. The peritoneum and rectus muscles were reapproximated using 2-0 Vicryl running suture. The rectus fascia was closed using 0 Vicryl running suture. The subcutaneous tissue was reapproximated using 2-0 Vicryl. An approximately 2cm portion of prior incision line at the left with hypertrophy was excised. The skin was closed using 4-0 Monocryl subcuticularly by the SECOND BUTLER under my supervision. A Mepilex occlusive dressing was placed over the incision. The fundus was firm. The patient was then transferred to the recovery room without complication. Sponge, instrument, and needle counts were correct ?2. Infant 2690 g - Complications None - Admit VTE Documentation VTE Present on Admission: No VTE Mechan Device Prophylaxis: SCD's VTE Pharm Prophylaxis ordered?: No Delivery Classification: Scheduled Final NARESH: 11/22/19 Final NARESH Source: US <20 weeks Gestational age: 37 Weeks and 1 Days Indications: 34yo at 37 1/7wga with hx prior abdominal myomectomy admitted for prim darcy section with oligohydramnios. Procedural r/b/i/a were reviewed. Consents were signed. Proceed as planned. Indications for : Previous Myomectomy, Oligohydramnios Amniotic Membrane Rupture Type: Artificial Amniotic Fluid Description: Clear Placenta Disposition: [facility] Drain: [place] to straight drain Cord Entanglement: None Cord Vessel Description: 3 Vessels Gender: Male (1 minute): 9 (5 minute): 10 Delayed cord clamping: Yes Antibiotic Given: Ancef 2 grams IV x1 Pt instructed on risks of surgery: Bleeding, Anesthesia Risks, Infection, Need for Future C-Sections, Injury to surrounding structure(s) including bowel and bladder Complications: None - Admit VTE Documentation VTE Present on Admission: No VTE Mechan Device Prophylaxis: SCD's VTE Pharm Prophylaxis ordered?: No
[2019-11-02] MEDS: Oxytocin 30 units/NS 500 ml 30 UNITS/500 ML IV.SOLN 167 UNITS IV (08:50)
[2019-11-02] MEDS: Levothyroxine 88 MCG Tablet PO (09:58)
[2019-11-02] MEDS: Lactated Ringers 1,000 ML 100 ML IV (12:26)
[2019-11-02] MEDS: Prenatal Vits Tablet 1 TABLET PO (14:06)
[2019-11-02] MEDS: Ketorolac 30 MG/ML Syringe IV ×2 (14:06→20:31)
--- NOTE | 2019-11-02 15:20 | HP.PCM_ITS ---
- Problem List (1) Oligohydramnios Status: Acute Qualifiers: Trimester: third trimester (2) 37 weeks gestation of Status: Acute (3) H/O: myomectomy Status: Acute History Date of Admission: 08/28/18 - 15 wk pain, vaginal bleeding Final NARESH: 11/22/19 Final NARESH Source: US <20 weeks Gestational age: 37 Weeks and 1 Days History of this : This is a 34 year-old, G [3], P [0020], at 37 1/7 weeks gestational age presenting for scheduled section. Medical History: Medical History (Last Updated 11/02/19 @ 15:[address] Melissa Stringer MD) Hypothyroidism E03.9 Missed (Inactive) O02.1 first trimester 2015 and second trimester 2017 Surgical History: Surgical History (Last Updated 11/02/19 @ 15:[address] Melissa Stringer MD) H/O dilation and curettage Z98.890 S/P myomectomy Z98.890 11/2018 Allergies clavulanic acid Allergy (Verified 11/02/19 06:21) Hives Home Medications: Home Medications Levothyroxine [Synthroid] 100 mcg PO DAILY 08/28/18 [place]-3 Fatty Acids [Fish Oil] 500 mg PO DAILY 08/28/18 Pnv No.95/Ferrous Fum/Folic AC [ Formula] 1 each PO DAILY 08/28/18 Aspirin 81 mg PO DAILY 11/02/19 Smoking Status: Never smoker Alcohol: None Number of Fetus(es): 1 NST - FHR Rate Baby A Baseline: 153 bpm History Past Pregnancies: Past Pregnancies Delivery Date Name GA/ Weeks Outcome Route Wt Infant Sex Labor Length Anesthesia Delivery Location Provider FOB 01/2017 8 sab d&c Sedation [facility] Brian Peter 08/2018 15 sab IOL Epidural [facility] Brian Peter Labs: Mom's Problem List Problem Status Onset Code Oligohydramnios Acute O41.00X0 37 weeks gestation of Acute Z3A.37 H/O: myomectomy Acute Z98.890 Mom's Labs & Results 11/02/19 11/02/19 05:30 05:30 WBC 8.9 RBC 3.21 L Hgb 10.8 L Hct 31.7 L MCV 98.8 MCH 33.6 H MCHC 34.1 RDW Std Deviation 44.5 H RDW Coeff of Chidi 12.4 Plt Count 197 MPV 12.2 H Immature Gran % (Auto) 0.900 Neut % (Auto) 61.9 Lymph % (Auto) 28.7 [place] % (Auto) 7.0 Eos % (Auto) 0.9 Baso % (Auto) 0.6 Absolute Neuts (auto) 5.5 Absolute Lymphs (auto) 2.55 Nucleated RBC % 0 Blood Type A POSITIVE Antibody Screen NEGATIVE Course Did the patient receive Yes care? Labs Blood Type: A RH: POSITIVE RPR/VDRL/Syphilis Nonreactive Rubella status Immune HbSAg Negative Date Done: 04/25/19 Chlamydia Negative Gonorrhea Negative HIV/AIDS Non-Reactive Group B Strep: Negative Current Obstetrical History Gestational Diabetes No Incompetent Cervix No Infertility Yes IUGR No Macrosomia No Hypertension/Pre-eclampsia No Placenta Previa/Abruption No PTL/PROM No Uterine anomaly No Oligohydramnios Yes, LETTY 2.7 on 11/01/19 Polyhydramnios No Multiple gestation No Past Medical History Asthma No Diabetes No Hypertension No Heart disease No Mitral valve prolapse No Neurologic/Seizure disorder/ No Migraines Kidney disease No Liver disease No Varicosities Yes: left leg Thyroid Dysfunction Yes: hypothyroid Other medical diseases No Psychiatric disorders No Major trauma No Abnormal PAP smear No Sleep apnea No Mammogram in the last 2 years Yes Social History Marital Status: Alleged father [place] Smoking No Smoking Status Never smoker Expected Infant Delivery Method: Scheduled Section Number of Visits: 10 Physical Exam Vitals: Vital Signs Temp Pulse Resp BP Pulse Ox 97.9 F 63 16 90/42 L 98 11/02/19 15:00 11/02/19 15:00 11/02/19 15:00 11/02/19 15:00 11/02/19 15:00 General: Alert, Oriented x3, Cooperative, No apparent distress HEENT: Atraumatic, Normocephalic Cardiovascular: Regular rate, Regular Rhythm, Normal S1, Normal S2 Lungs: Clear to auscultation, Normal air movement Abdomen: Soft, Non Tender, Non-Distended, Gravid Neurological: Neuro grossly intact 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 Melissa Stringer MD) Completed inevitable (Acute) Leiomyoma of uterus affecting in second trimester (Acute) Oligohydramnios (Acute) 37 weeks gestation of (Acute) H/O: myomectomy (Acute) This is a 34 year-old, G [3], P [0020], at 37 1/7 weeks gestational age hx myomectomy, oligohydramnios Proceed with C/S as planned
[2019-11-02] MEDS: DiphenhydrAMINE 25 MG Capsule PO (19:16)
[2019-11-02] MEDS: 0.9% Saline Lock 10 ML Syringe IV (20:31)
[2019-11-03 00:55] VITALS: BP 94/50; PULSE 68; RESP 16; TEMP 36.8; O2SAT 98
[2019-11-03] MEDS: Ketorolac 30 MG/ML Syringe IV ×4 (01:15→20:10)
[2019-11-03] MEDS: 0.9% Saline Lock 10 ML Syringe IV ×4 (01:16→20:11)
[2019-11-03] MEDS: DiphenhydrAMINE 25 MG Capsule PO (04:50)
[2019-11-03] MEDS: Levothyroxine 88 MCG Tablet PO (05:55)
[2019-11-03 08:00] VITALS: BP 85/41; PULSE 69; RESP 16; TEMP 36.7
--- NOTE | 2019-11-03 10:43 | NURSING ---
raised hive-like areas noted to both thighs, Dr. Hong in and aware
[2019-11-03 11:52] LABS: Hematocrit 28.8 % (37-47); Hemoglobin 9.9 g/dL (12.0-15.0); Mean Corp Hgb Conc 34.4 g/dL (32-36); Mean Corpuscular Hgb 34.6 pg (27.0-32.0); Mean Corpuscular Volume 100.7 fL (81-99); Mean Platelet Vol. 11.9 fl (6.2-12.0); Platelet Count 169 K/mm3 (150-450); RBC Distribution Width CV 12.7 % (11.6-14.6); RBC Distribution Width SD 46.3 fl (35.1-43.9); Red Blood Count 2.86 M/mm3 (4.2-5.4); White Blood Count 12.2 K/mm3 (4.4-11.0)
--- NOTE | 2019-11-03 13:56 | PN.OBGYN_ITS ---
Patient Problems: Active and Suspected Problems (Last Updated 11/02/19 @ 15:[address] Melissa Stringer MD) Oligohydramnios (Acute) 37 weeks gestation of (Acute) H/O: myomectomy (Acute) Subjective: Patient without complaints. Tolerating diet well. Well controlled. Has a rash on her upper legs. Was help with Benadryl but then symptoms seem to recur. Objective: Afebrile and vital signs stable. CBC okay. Good urine output. - Physical Exam Vitals/I&O's: Vital Signs Temp Pulse Resp BP Pulse Ox 98.1 F 69 16 85/41 L 98 11/03/19 08:00 11/03/19 08:00 11/03/19 08:00 11/03/19 08:00 11/03/19 00:55 Oxygen Delivery Method Room Air Weight: 185 lb Body Mass Index (BMI) 30.7 Intake and Output for Last 24 Hours 11/01/19 11/02/19 11/03/19 23:59 23:59 23:59 Intake Total 2849.25 / 2849.25 Output Total 1600 / 1600 350 / 350 Balance 1249.25 / 1249.25 -350 / -350 Laboratory Results 11/03/19 04:35: WBC 12.2 H, RBC 2.86 L, Hgb 9.9 L, Hct 28.8 L, MCV 100.7 H, MCH 34.6 H, MCHC 34.4, RDW Std Deviation 46.3 H, RDW Coeff of Chidi 12.7, Plt Count 169, MPV 11.9 Current Medications Acetaminophen (Tylenol) 1,000 mg PO Q8H PRN PRN Reason: Pain Score 1-3/10 Bisacodyl (Dulcolax) 10 mg RECTAL UD PRN PRN Reason: If no BM Hydrocortisone (Hytone) 1 applic TOPICAL TID PRN PRN; Protocol PRN Reason: Discomfort Naloxone HCl 4 mg/ Dextrose 504 mls @ 0 mls/hr IV .Q0M PRN; Protocol PRN Reason: Respiratory depression Ketorolac Tromethamine (Toradol (Bkc)) 30 mg IV Q6H KATIE Stop: 11/04/19 08:01 Last Admin: 11/03/19 08:55 Dose: 30 mg Documented by: Levothyroxine Sodium (Synthroid) 88 mcg PO DAILY@0600 [facility] Last Admin: 11/03/19 05:55 Dose: 88 mcg Documented by: Methylergonovine Maleate (Methergine) 0.2 mg IM X1 PRN PRN Reason: Uterine Atony Naloxone HCl (Narcan) 0.02 mg IV Q1M PRN PRN Reason: RR <10 and pt unresponsive Ondansetron HCl (Zofran) 4 mg IV Q4H PRN PRN PRN Reason: Nausea Oxycodone HCl (Oxyir) 5 - 10 mg PO Q4H PRN PRN PRN Reason: Pain Score 4-10/10 Multivit/Folic Acid/Iron (Prenatabs Fa) 1 tablet PO DAILY@1200 [facility] Last Admin: 11/02/19 14:06 Dose: 1 tablet Documented by: Prochlorperazine Edisylate (Compazine Iv) 10 mg IV Q6H PRN PRN PRN Reason: NAUSEA Senna/Docusate Sodium (Senokot-S, Francesca-Colace) 0 tablet PO DAILY PRN PRN Reason: Constipation Simethicone (Mylicon) 80 mg PO PCHS PRN PRN Reason: Indigestion/stomach pain Sodium Chloride () 5 - 15 ml IV UD PRN PRN Reason: SALINE FLUSH Last Admin: 11/03/19 01:16 Dose: 10 ml Documented by: Medical Necessity - Tobacco Use Smoking Status: Never smoker Assessment/Plan All Active Problems (Last Updated 11/02/19 @ 15:[address] Melissa Stringer MD) Oligohydramnios (Acute) 37 weeks gestation of (Acute) H/O: myomectomy (Acute) Doing well postoperative day #1 status post section. Continuing present care.
[2019-11-03 14:06] VITALS: BP 91/44; PULSE 68; RESP 16; TEMP 36.6
[2019-11-03] MEDS: Prenatal Vits Tablet 1 TABLET PO (14:31)
[2019-11-03] MEDS: Senna/Docusate Sodium 1 Tablet PO (15:53)
[2019-11-03 20:00] VITALS: BP 86/47; PULSE 73; RESP 16; TEMP 36.8; O2SAT 100
[2019-11-04] MEDS: Ketorolac 30 MG/ML Syringe IV ×2 (01:39→08:51)
[2019-11-04] MEDS: 0.9% Saline Lock 10 ML Syringe IV ×2 (01:39→08:56)
[2019-11-04 01:50] VITALS: BP 102/37; PULSE 75; RESP 16; TEMP 36.8; O2SAT 97
[2019-11-04] MEDS: Levothyroxine 88 MCG Tablet PO (06:03)
[2019-11-04 08:00] VITALS: BP 100/57; PULSE 73; RESP 16; TEMP 36.4
[2019-11-04 11:03] LABS: Pathology Specimen OB SEE PATHOLOGY REPORT
[2019-11-04] MEDS: Senna/Docusate Sodium 1 Tablet PO (13:16)
[2019-11-04] MEDS: Prenatal Vits Tablet 1 TABLET PO (13:57)
[2019-11-04 14:00] VITALS: BP 98/50; PULSE 80; RESP 16; TEMP 36.4
[2019-11-04] MEDS: Acetaminophen 500 MG Tablet 1000 MG PO (14:17)
--- NOTE | 2019-11-04 14:48 | PCM.PN.OB ---
Patient Problems: Active and Suspected Problems (Last Updated 11/02/19 @ 15:[address] Melissa Stringer MD) Oligohydramnios (Acute) 37 weeks gestation of (Acute) H/O: myomectomy (Acute) Subjective: Pain controlled, more bothersome on transferring. Denies heavy lochia. Appetite doing well. No lightheadedness, chest pain or shortness of breath. nursing well. Passing flatus. Has constipation. Reports rashes resolved. Reports rash was same she experienced in on the lower legs, but had large hives on her thighs. The lower leg rash also occurs when eats movie theater popcorn or when she eats liao. She also had similar rash with Tdap. Objective: avss - Physical Exam Vitals/I&O's: Vital Signs Temp Pulse Resp BP Pulse Ox 97.6 F L 80 16 98/50 L 97 11/04/19 14:00 11/04/19 14:00 11/04/19 14:00 11/04/19 14:00 11/04/19 01:50 Oxygen Delivery Method Room Air Weight: 83.915 kg Body Mass Index (BMI) 30.7 Intake and Output for Last 24 Hours 11/02/19 11/03/19 11/04/19 23:59 23:59 23:59 Intake Total 2849.25 / 2849.25 Output Total 1600 / 1600 350 / 350 Balance 1249.25 / 1249.25 -350 / -350 General: Alert, Oriented x3, Cooperative, No apparent distress HEENT: Atraumatic, Normocephalic Lungs: Clear to auscultation, Normal air movement Cardiovascular: Regular rate, Regular Rhythm, Normal S1, Normal S2 Abdomen: Soft, Non Tender, Non-Distended, - - Fundus firm and nontender, lochia scant, incisional dressing c/d/i Extremities: No edema, No Calf Tenderness, Edema Skin: - - No rash present - resolved Neurological: Neuro grossly intact Psych/Mental Status: Normal Affect, Appropriate, Alert and oriented to time, place, person, mood and affect Current Medications Acetaminophen (Tylenol) 1,000 mg PO Q8H PRN PRN Reason: Pain Score 1-3/10 Last Admin: 11/04/19 14:17 Dose: 1,000 mg Documented by: Bisacodyl (Dulcolax) 10 mg RECTAL UD PRN PRN Reason: If no BM Hydrocortisone (Hytone) 1 applic TOPICAL TID PRN PRN; Protocol PRN Reason: Discomfort Naloxone HCl 4 mg/ Dextrose 504 mls @ 0 mls/hr IV .Q0M PRN; Protocol PRN Reason: Respiratory depression Levothyroxine Sodium (Synthroid) 88 mcg PO DAILY@0600 [facility] Last Admin: 11/04/19 06:03 Dose: 88 mcg Documented by: Methylergonovine Maleate (Methergine) 0.2 mg IM X1 PRN PRN Reason: Uterine Atony Naloxone HCl (Narcan) 0.02 mg IV Q1M PRN PRN Reason: RR <10 and pt unresponsive Ondansetron HCl (Zofran) 4 mg IV Q4H PRN PRN PRN Reason: Nausea Oxycodone HCl (Oxyir) 5 - 10 mg PO Q4H PRN PRN PRN Reason: Pain Score 4-10/10 Multivit/Folic Acid/Iron (Prenatabs Fa) 1 tablet PO DAILY@1200 [facility] Last Admin: 11/04/19 13:57 Dose: 1 tablet Documented by: Prochlorperazine Edisylate (Compazine Iv) 10 mg IV Q6H PRN PRN PRN Reason: NAUSEA Senna/Docusate Sodium (Senokot-S, Francesca-Colace) 0 tablet PO DAILY PRN PRN Reason: Constipation Last Admin: 11/04/19 13:16 Dose: 2 tablet Documented by: Simethicone (Mylicon) 80 mg PO HS PRN PRN Reason: Indigestion/stomach pain Last Admin: 11/04/19 13:16 Dose: 80 mg Documented by: Sodium Chloride () 5 - 15 ml IV UD PRN PRN Reason: SALINE FLUSH Last Admin: 11/04/19 08:56 Dose: 10 ml Documented by: Medical Necessity - Tobacco Use Smoking Status: Never smoker Assessment/Plan All Active Problems (Last Updated 11/02/19 @ 15:[address] Melissa Stringer MD) Oligohydramnios (Acute) 37 weeks gestation of (Acute) H/O: myomectomy (Acute) This is a 34 year-old, G [3], P [1021] POD#2 s/p PLTCS doing well. -Recent rash - suspected erythema multiforme at prior eval now resolved. Pt to monitor. Advised to avoid triggers foods for micropapular rash -Routine postop care - -Will plan for d/c home tomorrow
--- NOTE | 2019-11-04 14:54 | DCINST_ITS ---
Discharge Diet: No Restrictions Discharge Activity: Return to Normal Activity, May Shower, - - No tub bath for 1-[address] in 1-2 weeks May resume sexual activity in: 4-6 weeks Lifting Restrictions: 10 lb Call your doctor if your incision/area has: Continuous Slow Oozing, Sudden Increased Bleeding, Increased Pain/ Swelling, Increased Redness Suture Line Care: Avoid Pulling/Pushing Remove Dressing in (days):: 2 Cleanse incision/area with: Soap & Water Allergies/Adverse Reactions: Allergies clavulanic acid Allergy (Verified 11/02/19 06:21) Hives Medications to take at Discharge Levothyroxine [Synthroid] 100 mcg PO DAILY 08/28/18 [place]-3 Fatty Acids [Fish Oil] 500 mg PO DAILY 08/28/18 Pnv No.95/Ferrous Fum/Folic AC [ Formula] 1 each PO DAILY 08/28/18 Aspirin 81 mg PO DAILY 11/02/19 Primary Care Physician: Ken Fuentes MD [Primary Care Provider] - Test Results: Test results from this visit will be discussed in further detail at your follow- up appointment, if applicable. Please Follow Up With: Melissa Stringer MD When: 1-2 weeks
[2019-11-04 20:38] VITALS: BP 96/48; PULSE 71; RESP 18; TEMP 36.9; O2SAT 99
[2019-11-05] MEDS: Acetaminophen 500 MG Tablet 1000 MG PO ×2 (01:16→09:23)
[2019-11-05 01:18] VITALS: BP 111/47; PULSE 74; RESP 16; TEMP 36.9; O2SAT 98
[2019-11-05] MEDS: Levothyroxine 88 MCG Tablet PO (06:07)
[2019-11-05 09:25] VITALS: BP 95/51; PULSE 77; RESP 20; TEMP 36.6; O2SAT 98
--- NOTE | 2019-11-05 11:12 | DCINST_ITS ---
Discharge Diet: No Restrictions Discharge Activity: Return to Normal Activity, May Shower, - - No tub bath for 1 week May resume sexual activity in: 4-6 weeks Lifting Restrictions: 10 lb Call your doctor if you observe: Fever of 101 or Higher, Inability to urinate, Inability to have a bowel movement, Using more than one pad per hour, Shortness of breath, Chest pain, Calf discomfort, Uncontrolled pain Suture Line Care: Avoid Pulling/Pushing Remove Dressing in (days):: 2 Cleanse incision/area with: Soap & Water Additional Instructions: If you experience any of the following, contact your healthcare provider. * Bleeding that soaks a pad every hour for 2 hours * Fever 100.4 or higher * Unrelieved incision or abdominal pain * Swelling, redness, discharge or bleeding from your incision or episiotomy site * Your incision begins to separate * Problems urinating (including inability to urinate or burning while urinating). * Visual changes * Severe headache * Flu-like symptoms * Pain or redness in one of both of your breasts * Pain, warmth, tenderness or swelling in your legs, especially the calf area * Frequent nausea and vomiting * Symptoms of depression or anxiety If you experience any of the following, call 911 or go to the nearest Emergency Room. * Chest pain * Problems breathing * Seizure activity * Partial or complete paralysis of a body part, slurred speech, weakness or drooping of the face, or a sudden inability to walk or hold your balance Allergies/Adverse Reactions: Allergies clavulanic acid Allergy (Verified 11/02/19 06:21) Hives Medications to take at Discharge [place]-3 Fatty Acids [Fish Oil] 500 mg PO DAILY 08/28/18 Pnv No.95/Ferrous Fum/Folic AC [ Formula Tablet] 1 each PO DAILY 08/28/18 Levothyroxine [Synthroid] 88 mcg PO DAILY@0600 #30 tab 11/04/19 Senna/Docusate Sodium [Senokot-S] 1 - 2 tab PO DAILY PRN tab 11/04/19 The following prescriptions were given: Levothyroxine [Synthroid] 88 mcg PO DAILY@0600 #30 tab Transmission Status: Received by [id number] Follow-Up: Call to make an appointment with your doctor for an incision check in 1-2 weeks. You will also need a 6 week post- follow up appointment. Test results from this visit will be discussed in further detail at your follow- up appointment, if applicable. Please Follow Up With: Melissa Stringer MD - Call to schedule a Telehealth visit When: 1-2 weeks Primary Care Physician: Ken Fuentes MD [Primary Care Provider] -
[2019-11-05] MEDS: Senna/Docusate Sodium 1 Tablet PO (11:16)
[2019-11-05] MEDS: Prenatal Vits Tablet 1 TABLET PO (11:16)
[2019-11-05 14:50] VITALS: BP 101/39; PULSE 84; TEMP 36.6
== END 2019-11-05 16:05 | disposition home or self-care (01) | DRG 788 ==
PROVIDERS: Admitting Provider Obstetrics & Gynecology; PCP Family Medicine; Referring Provider Obstetrics & Gynecology; Visit Provider Obstetrics & Gynecology
PROC: 10D00Z1 Extraction of Products of Conception, Low, Open Approach (ICD-10-PCS; CPT 59514; principal; 2019-11-02 07:15)
DX: O41.03X0 Oligohydramnios, third trimester, not applicable or unspecified (principal); Z3A.37 37 weeks gestation of pregnancy; Z37.0 Single live birth; O99.73 Diseases of the skin and subcutaneous tissue complicating the puerperium; L51.8 Other erythema multiforme
CPT/HCPCS: 85025; 85027; 86850; 86900; 86901; 88307; 99218; J7120; A4216; G0378; J2405

== ENCOUNTER → 2019-11-06 09:09 | Outpatient (CLI) | payer BC, SELFPAY ==
[2019-11-02 06:03] VITALS: BMI 30.7
== END ==
PROVIDERS: PCP Family Medicine; Referring Provider Obstetrics & Gynecology; Visit Provider Obstetrics & Gynecology
DX: Z39.1 Encounter for care and examination of lactating mother (principal)
CPT/HCPCS: 96158

== ENCOUNTER → 2019-12-04 | Outpatient (CLI) | payer BC, SELFPAY ==
[2019-11-02 06:03] VITALS: BMI 30.7
== END | disposition home or self-care (01) ==
LOC: TELEHEALTH 12-05 09:47
PROVIDERS: PCP Family Medicine; Referring Provider Obstetrics & Gynecology; Visit Provider Obstetrics & Gynecology
DX: O92.79 Other disorders of lactation (principal); O91.23 Nonpurulent mastitis associated with lactation
CPT/HCPCS: 96158; 96159

== ENCOUNTER 2019-12-05 11:30 | Outpatient (CLI) | payer BC, SELFPAY ==
[2019-11-02 06:03] VITALS: BMI 30.7
== END 2019-12-05 12:00 | disposition home or self-care (01) ==
LOC: WPOUT 11:38 → WP 11:39
PROVIDERS: PCP Family Medicine; Referring Provider Obstetrics & Gynecology; Visit Provider Obstetrics & Gynecology
DX: N61.0 Mastitis without abscess (principal)
CPT/HCPCS: 96158; 96159

== ENCOUNTER → 2019-12-14 | Outpatient (CLI) | payer BC, SELFPAY ==
[2019-11-02 06:03] VITALS: BMI 30.7
[2019-12-14 13:19] LABS: Free T3 2.1 pg/mL (2.18-3.98); T4 Free Direct 1.01 ng/dL (0.76-1.46); Thyroid Stim Hormone (TSH) 0.73 uIU/mL (0.358-3.74)
[2019-12-19 20:36] LABS: HPV APTIMA, High Risk Negative (Negative)
== END | disposition home or self-care (01) ==
LOC: WOBLAB 12:04
PROVIDERS: PCP Family Medicine; Referring Provider Obstetrics & Gynecology; Visit Provider Obstetrics & Gynecology
DX: E03.9 Hypothyroidism, unspecified (principal); Z12.4 Encounter for screening for malignant neoplasm of cervix
CPT/HCPCS: 36415; 84439; 84443; 84481; 87624; 88175; G0145

== ENCOUNTER → 2020-05-23 | Outpatient (CLI) | payer BC, SELFPAY ==
[2019-11-02 06:03] VITALS: BMI 30.7
[2020-05-28 10:41] LABS: HPV APTIMA, High Risk Negative (Negative)
== END | disposition home or self-care (01) ==
LOC: LABSPEC 13:37
PROVIDERS: PCP Family Medicine; Visit Provider Obstetrics & Gynecology
DX: R87.615 Unsatisfactory cytologic smear of cervix (principal)
CPT/HCPCS: 87624; 88175; G0145

== ENCOUNTER → 2020-07-12 11:46 | Outpatient (CLI) | payer BC, SELFPAY ==
[2019-11-02 06:03] VITALS: BMI 30.7
== END ==
PROVIDERS: PCP Family Medicine; Referring Provider Obstetrics & Gynecology; Visit Provider Obstetrics & Gynecology
DX: P92.5 Neonatal difficulty in feeding at breast (principal)
CPT/HCPCS: 96158

== ENCOUNTER 2020-11-07 16:00 | Outpatient (RCR) | payer BC, SELFPAY ==
[2019-11-02 06:03] VITALS: BMI 30.7
== END 2021-01-08 23:59 ==
LOC: IMMUN 16:00
PROVIDERS: PCP Family Medicine; Referring Provider Family Medicine; Visit Provider Family Medicine
DX: Z23 Encounter for immunization (principal)
CPT/HCPCS: 0001A; 0002A; 91300

== ENCOUNTER → 2021-04-30 16:32 | Outpatient (CLI) | payer BC, SELFPAY ==
[2021-04-30 18:19] LABS: Free T3 2.1 pg/mL (2.18-3.98); T4 Free Direct 1.06 ng/dL (0.76-1.46); Thyroid Stim Hormone (TSH) 0.77 uIU/mL (0.358-3.74)
[2021-04-30 18:20] LABS: T3 Total - Triiodothyronine 0.91 ng/mL (0.6-1.81)
== END ==
PROVIDERS: PCP Family Medicine; Visit Provider Obstetrics & Gynecology
DX: E03.9 Hypothyroidism, unspecified (principal)
CPT/HCPCS: 36415; 84439; 84443; 84480; 84481

== ENCOUNTER → 2021-06-26 12:19 | Outpatient (CLI) | payer BC, SELFPAY ==
[2021-06-26 13:23] LABS: Free T3 2.3 pg/mL (2.18-3.98); Prolactin 10.8 ng/mL; T4 Free Direct 1.14 ng/dL (0.76-1.46); Thyroid Stim Hormone (TSH) 0.53 uIU/mL (0.358-3.74)
== END ==
PROVIDERS: PCP Family Medicine; Visit Provider Obstetrics & Gynecology
DX: E22.1 Hyperprolactinemia (principal); E03.9 Hypothyroidism, unspecified
CPT/HCPCS: 36415; 84146; 84439; 84443; 84481

== ENCOUNTER 2021-08-08 09:00 | Outpatient (CLI) | payer BC, SELFPAY ==
--- NOTE | 2021-08-08 09:06 | US_ITS ---
STUDY: ULTRASOUND BREAST - LEFT REASON FOR EXAM: Female, 36 years old. Occasional left lateral breast pain. TECHNIQUE: Axial and longitudinal images of the LEFT breast were performed with a high resolution ultrasound transducer. # OF IMAGES: 46 COMPARISON: Comparison is made with prior mammograms in earlier today. FINDINGS: LEFT Breast: The lateral aspect of the left breast was examined by ultrasound. No sonographic abnormality is seen. US/Breast Limited Unilateral IMPRESSION: No sonographic abnormality is seen. ASSESSMENT CATEGORY: BIRADS Category 1: Negative. A letter regarding these results will be sent to the patient by the facility within 30 days. Electronically Signed: Wicho Suarez MD at 10:52 EST , Service support ,
--- NOTE | 2021-08-08 09:06 | BI_ITS ---
MAMMOGRAPHY - BILATERAL DIAGNOSTIC REASON FOR EXAM: Female, 36 years old. Occasional left lateral breast pain. PERTINENT HISTORY: TECHNIQUE: Digital bilateral breast katie (3D mammographic acquisition) in the CC and MLO projections. 2-D mediolateral oblique (MLO) and craniocaudad (CC) views of both breasts were obtained. CAD: Full Field Digital Mammography with Computer Added Detection was performed. COMPARISON: Comparison is made with prior study dated 03/03/2018. FINDINGS: Breast Composition: The breasts are heterogeneously dense, which may obscure small masses. There are no dominant masses or suspicious calcifications. No other significant abnormalities are identified. There has been no significant change since the prior study. BI/DIAG MAMM W/CAD, BILAT IMPRESSION: Stable bilateral diagnostic mammogram. With the patient''s history of occasional left lateral breast pain, correlation with targeted ultrasound is recommended. ASSESSMENT CATEGORY: BIRADS Category 0: Incomplete. Need additional imaging evaluation. A letter regarding these results will be sent to the patient by the facility within 30 days. Approximately 10% of breast cancers are not detected by mammography. A normal mammogram should not delay biopsy of a clinically suspicious abnormality. Electronically Signed: Wicho Suarez MD at 10:36 EST , Service support ,
== END 2021-08-08 23:59 | disposition short-term general hospital (02) ==
PROVIDERS: PCP Family Medicine; Visit Provider Obstetrics & Gynecology
DX: Z12.31 Encounter for screening mammogram for malignant neoplasm of breast (principal); N64.4 Mastodynia
CPT/HCPCS: 76642; 77062; 77066; G0279

== ENCOUNTER 2021-08-23 12:35 | Outpatient (CLI) | payer BC, SELFPAY ==
[2021-08-23 14:31] LABS: Progesterone Level 15.24 ng/mL (See Comment)
== END 2021-08-23 23:59 | disposition short-term general hospital (02) ==
LOC: WOBLAB 12:35
PROVIDERS: PCP Family Medicine; Visit Provider Obstetrics & Gynecology
DX: E22.1 Hyperprolactinemia (principal); E28.8 Other ovarian dysfunction
CPT/HCPCS: 36415; 84144

== ENCOUNTER 2021-09-24 10:38 | Outpatient (CLI) | payer BC, SELFPAY ==
[2021-09-24 12:07] LABS: Absolute Lymphocyte Count 2.04 X10^3/uL (0.83-4.51); Absolute Neutrophil Count 6.5 X10^3/uL (2.0-7.7); Basophil# 0.05 X10^3/uL; Basophil% 0.5 % (0-1); Eosinophil# 0.03 X10^3/uL; Eosinophils% 0.3 % (0-5); Hematocrit 38.7 % (37-47); Hemoglobin 13.9 g/dL (12.0-15.0); Lymphocyte # 2.04 X10^3/ul (0.83-4.51); Lymphocyte % 22.4 % (19-41); Mean Corp Hgb Conc 35.9 g/dL (32-36); Mean Corpuscular Hgb 34.2 pg (27.0-32.0); Mean Corpuscular Volume 95.3 fL (81-99); Mean Platelet Vol. 12.2 fl (6.2-12.0); Monocyte# 0.48 X10^3/uL; Monocyte% 5.3 % (0-10); NRBC Flagged by Analyzer 0 % (0-5); Neutrophil # 6.47 X10^3/uL (2.7-7.7); Neutrophil % 71.1 % (47-70); Platelet Count 236 K/mm3 (150-450); RBC Distribution Width CV 11.6 % (11.6-14.6); RBC Distribution Width SD 40.5 fl (35.1-43.9); Red Blood Count 4.06 M/mm3 (4.2-5.4); White Blood Count 9.1 K/mm3 (4.4-11.0)
[2021-09-24 12:28] LABS: Thyroid Stim Hormone (TSH) 1.74 uIU/mL (0.358-3.74)
[2021-09-24 12:51] LABS: Amphetamine Urine VISTA NEGATIVE (<1000 ng/mL); Barbiturate Urine VISTA NEGATIVE (< 200 ng/mL); Benzodiazepine Urine VISTA NEGATIVE (< 200 ng/mL); Cocaine Urine VISTA NEGATIVE (< 300 ng/mL); Ecstacy Urine VISTA NEGATIVE (< 500 ng/mL); Methadone Urine VISTA NEGATIVE (< 300 ng/mL); PCP Urine VISTA NEGATIVE (< 25 ng/mL); THC Urine VISTA NEGATIVE (< 50 ng/mL); Vista UDS pH Range 6
[2021-09-24 12:56] LABS: HIV - WCH Non-Reactive (Nonreactive); Hepatitis B Surface Antigen Non-Reactive (Nonreactive); Hepatitis C Antibody Non-Reactive (Nonreactive); Rubella IgG Reactive (Nonreactive); Syphilis Antibodies Non-reactive
[2021-09-25 22:06] LABS: Chlamydia By Nucleic Acid AMP Negative (Negative)
[2021-09-26 16:03] LABS: Gonococcus By Nucleic Acid AMP Negative (Negative)
== END 2021-09-24 23:59 | disposition home or self-care (01) ==
LOC: WOBLAB 10:39
PROVIDERS: PCP Family Medicine; Visit Provider Obstetrics & Gynecology
DX: Z34.81 Encounter for supervision of other normal pregnancy, first trimester (principal)
CPT/HCPCS: 36415; 80307; 84443; 85025; 86703; 86762; 86780; 86803; 87086; 87088; 87340; 87491; 87591

== ENCOUNTER → 2022-02-14 | Outpatient (CLI) | payer BC, SELFPAY ==
[2022-02-14 12:17] LABS: Hematocrit 33.4 % (37-47); Hemoglobin 11.5 g/dL (12.0-15.0); Mean Corp Hgb Conc 34.4 g/dL (32-36); Mean Corpuscular Hgb 33.9 pg (27.0-32.0); Mean Corpuscular Volume 98.5 fL (81-99); Mean Platelet Vol. 11.8 fl (6.2-12.0); Platelet Count 212 K/mm3 (150-450); RBC Distribution Width CV 11.9 % (11.6-14.6); RBC Distribution Width SD 42.9 fl (35.1-43.9); Red Blood Count 3.39 M/mm3 (4.2-5.4)
[2022-02-14 12:28] LABS: Glucose Challenge Gest 1H 50g 105 mg/dL (70-140); T4 Free Direct 1.12 ng/dL (0.76-1.46); Thyroid Stim Hormone (TSH) 0.91 uIU/mL (0.358-3.74)
== END | disposition home or self-care (01) ==
LOC: WOBLAB 11:02
PROVIDERS: PCP Family Medicine; Visit Provider Obstetrics & Gynecology
DX: O99.283 Endocrine, nutritional and metabolic diseases complicating pregnancy, third trimester (principal); E03.9 Hypothyroidism, unspecified
CPT/HCPCS: 36415; 82950; 84439; 84443; 85027

== ENCOUNTER 2022-04-24 09:40 | Inpatient (IN) | payer BC, SELFPAY ==
--- NOTE | 2022-04-23 14:33 | PCM.HP.BLA ---
History and Physical Date of Admission: 04/24/22 HPI: The patient is a 36 year old female presenting for pre-operative visit. She is scheduled for with bilateral salpingectomy, for history of previous section, 38 weeks gestation, suspected intrauterine growth restriction and sterilization request on 04/24/22. Procedure discussed along with risks, benefits and complications. Other alternatives discussed for management. Consent form signed? Yes. ? ? PAST MEDICAL HISTORY PAST MEDICAL HISTORY Diagnosis Date ? breast tenderness 2020 ? had breast ultrasound ? COVID-19 12/30/2021 ? Fibroid uterus ? ? Hepatitis A 1989 ? Hypothyroidism 03/2018 ? Dx by MAINTENANCE REPRESENTATIVE Dr. Srtinger ? Pneumonia 08/2015 ? Sore throat, chronic 1999 ? recurrent, twice a year ? ? PAST SURGICAL HISTORY PAST SURGICAL HISTORY Procedure Laterality Date ? DELIVERY ONLY ? ? ? DILATION & CURETTAGE ? 2016 ? PAST SURGICAL HISTORY OF ? 2014 ? oral surgery ? PAST SURGICAL HISTORY OF ? 2019 ? myomenctomy ? ? ? CURRENT MEDICATIONS Current Outpatient Medications Medication Sig Dispense Refill ? docusate sodium (COLACE ORAL) Take by mouth. ? ? ? levothyroxine (SYNTHROID) 100 mcg tablet Take 100 mcg by mouth daily before breakfast. ? ? ? multivitamin (CLASSIC ) 28 mg iron- 800 mcg tab(s) Take 1 tablet by mouth once daily. ? 0 ? No current facility-administered medications for this visit. ? ? ALLERGIES: Clavulanic Acid ? PERSONAL HISTORY: SOCIAL HISTORY Social History ? Tobacco Use ? Smoking status: Never ? Smokeless tobacco: Never Vaping Use ? Vaping Use: Never used Substance Use Topics ? Alcohol use: Not Currently ? ? Comment: rare ? Drug use: No ? FAMILY HISTORY: FAMILY HISTORY FAMILY HISTORY Problem Relation Age of Onset ? Hypertension Mother ? ? Diabetes Mother ? ? other (sjogren) Mother ? ? Coronary Artery Disease Father ? ? Hypertension Father 60 ? No Known Problems Sister ? ? No Known Problems Maternal Grandmother ? ? Diabetes Maternal Grandfather ? ? Heart Maternal Grandfather ? ? No Known Problems Paternal Grandmother ? ? Hypertension Paternal Grandfather ? ? No Known Problems Son ? ? ? REVIEW OF SYMPTOMS: GENERAL: denies fevers or chills ENDOCRINOLOGY: has not been on steroids Cardiology : denies palpitations or chest pain Respiratory: denies SOB or cough Hematology: denies history of prolonged bleeding or easy bruising or VTE Allergy: Denies history of personal or family history of allergy to anesthesia ? PHYSICAL EXAMINATION: ? VITALS: Weight 189 lb (85.7 kg), last menstrual period 08/01/2021. ? GENERAL: The patient is well nourished, well hydrated in no acute distress. , The patient is oriented to time, place, and person. NECK: Supple. No lynphadenopathy, normal thyroid, no thyromegaly. LUNGS: Clear to auscultation bilaterally. no wheezes, rhonchi or rales HEART: Regular rate and rhythm, Normal heart sounds, and No murmurs or gallops ABD-soft, nontender, nondistended, gravid appropriate for gestational age ? IMPRESSION: Estimated Date of Delivery: 05/08/22 history previous section and previous myomectomy desires repeat section. Also desires permanent sterilization. ? PLAN: The risks/benefits/alternatives and personal involved for the planned delivery with bilateral salpingectomy, possible placement of Filshie clips if unable to complete salpingectomy were reviewed with the patient. Her questions were answered to her satisfaction and she desires to proceed. Consent was signed. I reviewed with her postop instructions and expectations. ? ? I have reviewed and updated past medical and surgical history, medications and allergies Assessment & Plan Assessment/Plan (1) 38 weeks gestation of : (2) Previous delivery affecting : (3) Request for sterilization: (4) Advanced maternal age (AMA) in : (5) IUGR (intrauterine growth restriction) affecting care of mother:
[2022-04-24] VITALS (19 sets, daily range): BP systolic 86–118; BP diastolic 43–73; PULSE 60–94; RESP 14–18; TEMP 36.1–36.9; O2SAT 97–100; BMI 31.4
[2022-04-24] MEDS: Lactated Ringers 1,000 ML 999 ML IV ×2 (10:05→15:02)
[2022-04-24] MEDS: Acetaminophen 500 MG Tablet 1000 MG PO ×2 (10:21→18:48)
[2022-04-24 10:22] LABS: Absolute Lymphocyte Count 2.28 X10^3/uL (0.83-4.51); Absolute Neutrophil Count 6.7 X10^3/uL (2.0-7.7); Basophil# 0.05 X10^3/uL; Basophil% 0.5 % (0-1); Eosinophil# 0.06 X10^3/uL; Eosinophils% 0.6 % (0-5); Hematocrit 36.8 % (37-47); Hemoglobin 12.7 g/dL (12.0-15.0); Lymphocyte # 2.28 X10^3/ul (0.83-4.51); Lymphocyte % 23.8 % (19-41); Mean Corp Hgb Conc 34.5 g/dL (32-36); Mean Corpuscular Volume 98.7 fL (81-99); Mean Platelet Vol. 12.3 fl (6.2-12.0); Monocyte# 0.48 X10^3/uL; NRBC Flagged by Analyzer 0 % (0-5); Neutrophil # 6.65 X10^3/uL (2.7-7.7); Neutrophil % 69.4 % (47-70); Platelet Count 210 K/mm3 (150-450); RBC Distribution Width CV 12.5 % (11.6-14.6); Red Blood Count 3.73 M/mm3 (4.2-5.4); White Blood Count 9.6 K/mm3 (4.4-11.0)
[2022-04-24] MEDS: Sodium Citrate/Citric Acid 30 ML UDC PO (10:51)
[2022-04-24] MEDS: Cefazolin 2 GM in 0.9% Normal Saline 100 ML IV (11:03)
--- NOTE | 2022-04-24 11:54 | EX.PCM.OBRPT ---
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 She was prepped and draped in the dorsal supine position with a leftward tilt. A Pfannenstiel skin incision was made approximately 2 cm above the symphysis pubis and carried through to underlying layer fascia with the scalpel. The fascia was incised incised in the midline and extended laterally with the Kenyon scissors. The fascia was dissected off the rectus muscles with blunt and sharp dissection. The rectus muscles were in the midline and the peritoneum was entered bluntly. The peritoneal incision was stretched and the bladder blade was placed. The uterine incision was made in a low transverse fashion with the scalpel and extended superiorly and inferiorly with blunt dissection. The amniotic membranes were ruptured bluntly and clear amniotic fluid returned. The 's head was brought to the incision in the flexed position and delivered without difficulty. The remainder of the infant was delivered with gentle traction and fundal pressure in the standard fashion. The mouth and nares were bulb suctioned. The cord was clamped and cut as the was stimulated. Cord clamping was delayed. The infant was handed off to the waiting nursing staff. The placenta was delivered with fundal massage and gentle traction in the standard fashion. The uterus was exteriorized and cleared of all clots and debris. The cervix was dilated with a ring forcep. The uterine incision was closed with #1 Vicryl in a running locked fashion. A second layer of the same suture was used in an imbricating fashion. The incision was examined and was found to be hemostatic. The left tube was identified and followed out to the fimbriated end. The LigaSure device was used to clamp, seal and transect the antimesenteric portion of the tube to the insertion at the cornual edge. The LigaSure device was then used to clamp, seal and transect the tube off the uterus. Excellent hemostasis of the pedicle was noted. The same procedure was performed on the contralateral side and excellent hemostasis was noted. The uterus was placed back into the peritoneal cavity and hemostasis was again confirmed. The rectus muscles were examined and any bleeding was Bovie cauterized. The parietal peritoneum and rectus muscles were closed en bloc with an 0 Vicryl running suture. The surgical teams outer gloves were then changed. The rectus fascia was examined and any bleeding was Bovie cauterized and the rectus fascia was closed with 0 PDS suture in a running standard fashion. The subcutaneous tissue was examining and any bleeding was Bovie cauterized. The subcutaneous tissue was reapproximated with 3-0 Vicryl suture. The skin was closed in a subcuticular fashion by the TRASH MAN with me present in the labor and delivery suite. I performed the remainder of the procedure with assistance. All sponge, lap, and needle counts were correct. The patient was taken to her room for recovery in a stable condition. Presentation: Positive for Vertex Amniotic Membrane Rupture Type: Artificial Amniotic Fluid Description: Clear Placental Delivery Description: Expressed Placenta Disposition: [facility] Specimen(s) Sent to Pathology: Bilateral fallopian tube Cord Vessel Description: 3 Vessels Cord Entanglement: Around neck x 1, loose Nuchal Cord Compression: Without compression Cord Gases: ABG and VBG Infant A Gender: Female (2650 gm) (1 minute): 9 (5 minute): 9 Delayed Cord Clamping: Yes Complications Complications: None
--- NOTE | 2022-04-24 12:12 | FALS_PTH ---
PATIENT: OLIMPIA LEECT #:[id number] LOC: WP U#:[id number] AGE/SX: 36/F ROOM: WP005 RE04/24/[address]: Dr. Hiral Fuentes MD : 1985 BED: 1 DIS: 04/26/2022 SPEC #: [id number] RECD: 04/24/22 15:28 STATUS: SCOOTER RAMIRES #: [id number] JACQUELINE: 04/24/22 12:[address]: Hiral Fuentes DEPT: SURGICAL PATHOLOGY RECD BY: Gloria Power ENTERED: 04/25/22 07:56 SP TYPE: FALL TUBES OTHR DR: Dr. Ken Fuentes MD Tissues: Fallopian tube Procedures: Surgery Specimen Level II HEADER OPERATION: Tubal ligation PRE-OP DIAGNOSIS: Sterilization TISSUE SUBMITTED: Fallopian tubes MICROSCOPIC DIAGNOSIS Bilateral fallopian tubes, salpingectomy: Bilateral fallopian tubes, no pathologic diagnosis. KIM:donaldo 04/28/2022 MICROSCOPIC DESCRIPTION Slides are reviewed. GROSS DESCRIPTION Received in fixative is one container labeled with the patient's name and designated bilateral fallopian tubes, left tie. The specimen consists of bilateral fallopian tubes including fimbrial ends. The right fallopian tube measures 6 cm in length and 0.6 cm in diameter and the left fallopian tube measures 5.5 cm in length and 0.6 cm in diameter. Sections reveal unremarkable cut surfaces. Kiln Loader sections are submitted in two cassettes as follows: 1 ? right fallopian tube, 2 ? left fallopian tube. / SJ:rg 04/25/2022 TC:4 CPT: 83841 x2
[2022-04-24] MEDS: Oxytocin 30 units/NS 500 ml 30 UNITS/500 ML IV.SOLN 167 UNITS IV (12:16)
[2022-04-24] MEDS: Ketorolac 30 MG/ML Syringe IV ×2 (12:38→18:48)
--- NOTE | 2022-04-24 14:22 | NURSING ---
1415 pt with bp of 86/49 and 89/50 pt asymptomatic; fundus firm one below and lochia small; pt denies any nausea pt eating crackers; phone call placed to dr toussaint office -notified nurse -awaiting return call; pts pulse remains in the 60's and urine output 200 cc over the last 2 hours
--- NOTE | 2022-04-24 14:49 | NURSING ---
1445 placed a second call to dr toussaint office and spoke with her directly this time- orders received for lr bolus
[2022-04-24 15:26] LABS: Pathology Specimen OB SEE PATHOLOGY REPORT
[2022-04-24] MEDS: Lactated Ringers 1,000 ML 100 ML IV (16:43)
[2022-04-25 00:08] VITALS: BP 92/51; PULSE 59; RESP 16; TEMP 36.6; O2SAT 97
[2022-04-25] MEDS: Acetaminophen 500 MG Tablet 1000 MG PO ×4 (00:29→18:32)
[2022-04-25] MEDS: Ketorolac 30 MG/ML Syringe IV ×2 (00:29→06:34)
[2022-04-25 04:18] VITALS: BP 97/54; PULSE 60; RESP 16; TEMP 35.8
[2022-04-25 04:40] LABS: Hematocrit 30.5 % (37-47); Hemoglobin 10.5 g/dL (12.0-15.0); Mean Corp Hgb Conc 34.4 g/dL (32-36); Mean Corpuscular Hgb 35.1 pg (27.0-32.0); Mean Platelet Vol. 11.8 fl (6.2-12.0); Platelet Count 167 K/mm3 (150-450); RBC Distribution Width CV 12.6 % (11.6-14.6); RBC Distribution Width SD 46.3 fl (35.1-43.9); Red Blood Count 2.99 M/mm3 (4.2-5.4); White Blood Count 11.1 K/mm3 (4.4-11.0)
[2022-04-25] MEDS: Levothyroxine 100 MCG Tablet PO (08:19)
[2022-04-25 08:22] VITALS: BP 103/58; PULSE 60; RESP 18; TEMP 36.3; O2SAT 98
[2022-04-25] MEDS: Senna/Docusate Sodium 1 Tablet PO (10:45)
[2022-04-25 12:09] VITALS: BP 92/51; PULSE 66; RESP 16; TEMP 36.4; O2SAT 100
[2022-04-25] MEDS: Ibuprofen 600 MG Tablet PO ×2 (13:33→18:31)
--- NOTE | 2022-04-25 15:57 | NURSING ---
student charting reviewed
[2022-04-25 16:04] VITALS: BP 95/53; PULSE 67; RESP 16; TEMP 36.4; O2SAT 98
--- NOTE | 2022-04-25 16:43 | PCM.PN.OB ---
Subjective Subjective Pain well controlled. Average lochia. Positive flatus no bowel movement. Ambulating and urinating without difficulty. Objective Data Objective Data Vital Signs: Vital Signs Temp Pulse Resp BP Pulse Ox O2 Del Method 97.6 F L 67 16 95/53 L 98 Room Air 04/25/22 16:04 04/25/22 16:04 04/25/22 16:04 04/25/22 16:04 04/25/22 16:04 04/25/22 16:04 Oxygen Delivery Method Room Air Weight: 85.7 kg Body Mass Index (BMI) 31.4 Intake & Output: Intake and Output for Last 24 Hours 04/23/22 04/24/22 04/25/22 23:59 23:59 23:59 Intake Total 3410 / 3410 1000 / 1000 Output Total 1350 / 1350 550 / 550 Balance 2060 / 2060 450 / 450 Lab / Micro Data Result Diagrams: 04/25/22 04:30 Labs: Laboratory Results - last 24 hr 04/25/22 04:30: WBC 11.1 H, RBC 2.99 L, Hgb 10.5 L, Hct 30.5 L, MCV 102.0 H, MCH 35.1 H, MCHC 34.4, RDW Std Deviation 46.3 H, RDW Coeff of Chidi 12.6, Plt Count 167, MPV 11.8 Micro: Microbiology 04/24/22 Unknown Nasal Secretion SARS-CoV-2 Antigen (Rapid) - Final Physical Exam Const alert General Appearance: cooperative GI GI Narrative: soft, moderate distention, fundus firm, appropriately tender. Abdominal bandage clean dry and intact Assessment & Plan (1) 38 weeks gestation of : PLAN: Plan Postoperative day #1 status post repeat section with bilateral salpingectomy. Patient is doing well postoperatively. Infant is nursing and doing well. Mild acute blood loss anemia appropriate for blood loss during surgery. Routine postoperative care. Likely discharge home tomorrow.
[2022-04-25 20:15] VITALS: BP 94/51; PULSE 75; RESP 16; TEMP 36.6; O2SAT 98
[2022-04-25] MEDS: oxyCODONE 5 MG Tablet PO (20:44)
[2022-04-26] MEDS: Acetaminophen 500 MG Tablet 1000 MG PO ×2 (00:30→06:37)
[2022-04-26] MEDS: Ibuprofen 600 MG Tablet PO ×3 (00:30→13:07)
[2022-04-26 02:09] VITALS: BP 100/53; PULSE 68; RESP 16; TEMP 36.7; O2SAT 98
[2022-04-26] MEDS: Levothyroxine 100 MCG Tablet PO (06:37)
[2022-04-26 08:00] VITALS: BP 91/58; PULSE 65; RESP 16; TEMP 36.2; O2SAT 98
--- NOTE | 2022-04-26 09:09 | PCM.DC.SUM ---
Providers Date of Admission: 04/24/22 Primary Care Physician: Dr. Ken Fuentes MD Reason For Visit: REPEAT C SECTION Diagnosis Discharge Diagnosis (1) Previous delivery affecting : Status: Acute Code(s): O34.219 - Maternal care for unspecified type scar from previous delivery (2) Care and examination of lactating mother: Status: Acute Code(s): Z39.1 - Encounter for care and examination of lactating mother (3) Hypothyroidism: Status: Acute Code(s): E03.9 - Hypothyroidism, unspecified Medications at Discharge Home Medications vit no.95-ferrous fumarate 28 mg-folic acid 800 mcg tablet ( Multivitamins) 1 ea PO DAILY see doctor 08/28/18 sennosides 8.6 mg-docusate sodium 50 mg tablet 1 - 2 tab PO DAILY PRN Constipation 11/04/19 levothyroxine 88 mcg tablet 100 mcg PO DAILY@0600 hypothyroid 04/24/22 Hospital Course Operations section Summary of Care Provided Hospital Course: Patient for repeat section. Hospital course was uneventful. Physical Exam Narrative Patient seen at bedside. Pain controlled. Denies headache, dizziness, SOB or CP. Breast feeding without difficulty. Passing flatus. Desires discharge home today. Const alert and no apparent distress General Appearance: cooperative and comfortable Exam Limitations: no limitations HEENT normocephalic Eyes General Eye: normal appearance of both eyes Neck full ROM General: normal visual inspection Chest Chest: symmetrical chest wall rise Resp normal respiratory effort and normal air movement Effort and Inspection: symmetric chest movement Auscultation: clear to auscultation bilaterally Cardio regular rate and regular rhythm GI normal to inspection, nondistended, normoactive bowel sounds Back/Spine normal ROM Extremity full ROM and no calf tenderness General Extremity: normal exam except as noted Skin no rashes or lesions noted Neuro CN's II-XII intact bilaterally Psych mental status grossly normal Weight / BMI Weight Weight: 188 lb 14.978 oz Body Mass Index (BMI) 31.4 ABG / Lab / Microbiology Data Result Diagrams: 04/25/22 04:30 Microbiology: Microbiology 04/24/22 Unknown Nasal Secretion SARS-CoV-2 Antigen (Rapid) - Final D/C Instructions Discharge Diet: No restrictions Discharge Activity: May Not Drive (2 weeks) and May Shower May resume sexual activity in: 6-8 weeks Weight Bearing Status: Weight bearing as tolerated Call your doctor if your incision/area has: Continuous Slow Oozing, Sudden Increased Bleeding, Increased Pain/ Swelling, Increased Redness, Foul Smelling Discharge and Swelling at the incision site Call your doctor if you observe: Fever of 101 or Higher, Inability to urinate, Inability to have a bowel movement, Using more than 1 pad per hour, Shortness of breath, Dizziness, Chest pain, Calf discomfort and Uncontrolled pain Change Dressing in: leave in place till F/U Remove Dressing in: leave in place till F/U Please Follow Up With: Hiral Fuentes MD When: 1 week for incision check Meaningful Use Info Meaningful Use Diagnoses (Choose all that apply): None applicable Discharge Plan Admission Admit Date/Time: 04/24/22 09:40 Primary Reason for Your Visit: Repeat C/S Attending Provider: Hiral Fuentes Primary Care Provider: Ken Fuentes Discharge Orders/Prescriptions Prescriptions: No Action PNV cmb#95-ferrous fumarate-FA [ Multivitamins] 1 EACH tablet 1 ea PO DAILY sennosides-docusate sodium 1 TABLET tablet 1 - 2 tab PO DAILY PRN (Reason: Constipation) 0RF levothyroxine 88 MCG tablet 100 mcg PO DAILY@0600 Referrals / Follow Up: Ken Fuentes MD [Primary Care Provider] - Disposition Disposition (needs filled in before D/C Order can be placed): Home, Self Care
[2022-04-26 12:00] VITALS: BP 113/62; PULSE 76; RESP 16; TEMP 36.6; O2SAT 98
[2022-04-26] MEDS: Senna/Docusate Sodium 1 Tablet PO (13:07)
[2022-04-26] MEDS: oxyCODONE 5 MG Tablet PO (13:07)
== END 2022-04-26 13:55 | disposition home or self-care (01) | DRG 785 ==
PROVIDERS: Admitting Provider Obstetrics & Gynecology; PCP Family Medicine; Visit Provider Obstetrics & Gynecology
PROC: 0UT70ZZ Resection of Bilateral Fallopian Tubes, Open Approach (ICD-10-PCS; CPT 59514; principal; 2022-04-24 11:45)
DX: O34.219 Maternal care for unspecified type scar from previous cesarean delivery (principal); E03.9 Hypothyroidism, unspecified; Z03.74 Encounter for suspected problem with fetal growth ruled out; Z30.2 Encounter for sterilization; Z37.0 Single live birth; Z3A.38 38 weeks gestation of pregnancy; Z86.16 Personal history of COVID-19; O99.284 Endocrine, nutritional and metabolic diseases complicating childbirth; Z79.899 Other long term (current) drug therapy; Z39.1 Encounter for care and examination of lactating mother; O69.81X0 Labor and delivery complicated by cord around neck, without compression, not applicable or unspecified
CPT/HCPCS: 59025; 59050; 85025; 85027; 86850; 86900; 86901; 87426; 88302; 99218; J7120; G0378; J2405